=== PATIENT | female | born 1935 | race Caucasian/White ===

== ENCOUNTER 2023-12-20 12:10 | Inpatient (IN) | payer MEDICARE, BC, SELFPAY ==
[2023-12-18 16:13] VITALS: BP 124/88
--- NOTE | 2023-12-18 17:13 | ED.GENMED ---
History of Present Illness
General
Chief Complaint: Fall
Time Seen by Provider: 12/18/23 16:43
History of Present Illness
History of Present Illness:
Patient is a 88-year-old woman with history of prior stroke with no residual deficits, hypertension, hyperlipidemia presenting to the emergency department with recurrent falls. Patient states that she was diagnosed with an ear infection 4 days ago,
started on eardrops. She has not had a daily fall every single night for the past 3 days. Her daughter called primary care doctor who started her on azithromycin as the infection could be worsening. Patient's daughter brought her in here for the
falls and thinks that she needs to go to rehab secondary to all the falls. She does feel more weak which is why she is falling. She did hit her head. She did not lose consciousness. She is not on any blood thinners. No numbness tingling. No
weakness. She has been ambulating with a walker more recently. She does not feel as if her balance is acutely worse. This morning they did notice a rash to the left forehead.
Past History
Past History
ED Past Medical History: CVA, HTN, Hypercholesterolemia and Hypothyroidism
ED Past Surgical History: Other (History of having an angiogram)
Social History
Tobacco: Non-smoker
Personal:
Living: with family
Employment: Retired
Phy Exam
Physical Exam
Physical Exam:
GENERAL: in no acute distress
HEENT: normocephalic, extraocular movements intact, bilateral tympanic membranes normal, no vesicles in inner ear canal moist oral mucosa
NECK: normal inspection
RESPIRATORY: no respiratory distress, clear to auscultation bilaterally
CARDIOVASCULAR: regular rate and rhythm
ABDOMEN/: soft, non-distended, non-tender to palpation, no rebound or guarding
EXTREMITIES: non-tender, no edema/swelling
NEUROLOGIC: alert and oriented x 3, cranial nerves II-XII intact, right upper extremity strength 5/5, left upper extremity strength 5/5, right lower extremity strength 5/5, left lower extremity strength 5/5, normal sensation to light touch, normal
btowge-rj-wpzp and nxhi-de-zqpd, gait not tested formally
SKIN: warm, 1 cm circular erythematous macules to the left forehead and left side of nose, some scabbing, no vesicles, left eyelid with some erythema and crusting
Course
Orders/Labs/Results
Orders:
Orders
12/18/23 17:11
Case Management Consult ONCE
Case Management Consult: Discharge Planning
Physical Therapy Consult [Pt Eval And Treat] Urgent
Activity Level: Ambulate
12/18/23 17:33
CT Head W/wo Iv Contrast Urgent
Comment:
Reason For Exam: falls, rash, balance prob
12/18/23 17:40
Basic Metabolic Panel Urgent
Complete Blood Count/With Diff Urgent
12/18/23 18:48
Valacyclovir HCl [Valtrex] 1,000 mg PO ONCE ONE
12/18/23 19:31
Electrocardiogram (*1) Urgent
Reason for Study: Fatigue / Weakness
EKG- Treatment ONCE
Urinalysis Reflex To Culture Urgent
Date Specimen was Collected: 12/18/23
Time Specimen was Collected: 19:38
Abnormal Lab Results
12/18/23
17:40
RBC 3.32 L 10^6/uL
(4.20-5.40)
Hgb 10.3 L g/dL
(12.0-16.0)
Hct 30.1 L %
(37.0-47.0)
MPV 10.6 H fL
(7.4-10.4)
Immature Gran % 0.7 H %
(0-0.5)
Monocytes % 12.0 H %
(1.7-9.3)
BUN 18 H mg/dl
(7-17)
Creatinine 1.2 H mg/dL
(0.6-1.0)
Glucose 119 H mg/dl
(70-99)
12/18/23 17:40
12/18/23 17:40
Vital Signs
Initial and Last Documented VS:
Initial Vital Signs
Temp Pulse Resp BP Pulse Ox
97.7 F 89 17 124/88 98
12/18/23 16:13 12/18/23 16:13 12/18/23 16:13 12/18/23 16:13 12/18/23 16:13
Last Documented Vital Signs
Temp Pulse Resp BP Pulse Ox
97.7 F 89 17 147/74 95
12/18/23 16:13 12/18/23 16:13 12/18/23 16:13 12/18/23 20:05 12/18/23 20:05
MDM/Problems Addressed
Differential Diagnosis Includes:
Patient is a 88-year-old woman presenting to the emergency department with ear infection rash and recurrent falls. Vitals here are notable for being afebrile. Exam does show rash to the left forehead and the left side of the nose that is
consistent with shingles. There is no facial droop. Her neuroexam is reassuring. Given that she is having worsening fall since this ear infection and now with rash I am concerned about a deeper space infection such as an intracranial abscess
though patient is well-appearing. Will obtain basic blood work and CT scan of the head with contrast. Given the recurrent falls we will also check urine sample and EKG. we will discuss with physical therapy and case management for placement.
*Critical Care Note
Total Time (30-74mins, 75-104mins- exclusive of procedures): Not Applicable
Update Note
Update Note:
Discussed with case management and unfortunately patient will not be able to be placed at rehab today. Patient will need admission. We are pending CT scans at this time. Discussed with hospitalist who accepted pending CT scans.
ED Attending Note
-
Portions of this chart may have been created with voice recognition software.� Occasional wrong word or��sound alike� substitutions may have occurred due to the inherent limitations of voice recognition software.
Discharge Plan
Departure
Patient Disposition: Admit
Date of Disposition: 12/18/23
Time of Disposition: 20:08
Presentation/result/management discussed w/ accepting MD/DO: Hospitalist
Discharge Problem:
Shingles, Falls
Prescriptions:
No Action
aspirin 81 MG tablet,delayed release (DR/EC)
81 mg PO HS
pravastatin 40 MG tablet
40 mg PO HS
doxepin 10 MG capsule
10 mg PO HS
duloxetine 30 MG capsule,delayed release(DR/EC)
30 mg PO DAILY
Patient Comments:
01/25/2021: taken w/ 60mg = 90mg
duloxetine 60 MG capsule,delayed release(DR/EC)
60 mg PO DAILY
Patient Comments:
01/25/2021: taken w/ 30mg = 90mg
multivitamin with folic acid [Tab-A-Usha] 1 TABLET tablet
1 tab PO DAILY
midodrine 5 MG tablet
2.5 mg PO BID@0800,1300 0RF
levothyroxine 75 MCG tablet
75 mcg PO DAILY@0700 0RF
tramadol 50 MG tablet
50 mg PO Q6HPRN PRN (Reason: moderate to severe pain) Qty: 12 0RF
alprazolam 0.25 MG tablet
0.25 mg PO HSPRN PRN (Reason: insomnia) Qty: 3 0RF
cephalexin 500 mg capsule
1,000 mg PO BID Qty: 14 0RF
Referrals:
NONE,* [Active] -
Interventions
Interventions:
*Risk Screen - Suicide Last Done: 12/18/23 17:49
*General Assessment Last Done: 12/18/23 17:49
*Neglect/Abuse Screening Last Done: 12/18/23 17:49
*ED COVID-19 Vaccine History Last Done: 12/18/23 17:49
ED-Musculoskeletal Assessment Last Done: 12/18/23 17:49
ED- Neurological Assessment Last Done: 12/18/23 17:49
ED-Skin Assessment Last Done: 12/18/23 17:49
Discharge Date and Time
Print Language: SINGAPOREAN
--- NOTE | 2023-12-18 17:43 | CM ---
CM reviewed medical records. CM met with patient and daughter in room. Patient lives with daughter and has been having multiple falls. Daughter is agreeable to rehab. Patient stated that she would go 'if it helps me'. Cm encourage SNF
choices.Patient has been to [facility] and [facility]. Patient would be agreeable to return to [facility]. She would also be agreeable to [facility].
CM sent referrals to [facility] and [facility]. Pt evaluation is pending.
PLAN: SNF
[2023-12-18 17:48] LABS: % Basophils 0.2 % (0-2); % Eosinophils 1.5 % (0-6); % Immature Granulocytes 0.7 % (0-0.5); % Neutrophils 56.6 % (42.2-75.2); Absolute Eosinophils 0.1 10^3/uL (0-0.7); Absolute Lymphocytes 1.6 10^3/uL (1.2-3.4); Absolute Monocytes 0.6 10^3/uL (0.1-0.6); Hematocrit 30.1 % (37.0-47.0); Hemoglobin 10.3 g/dL (12.0-16.0); Mean Corp Hgb Conc. 34.2 g/dL (33.0-37.0); Mean Corpuscular Volume 90.7 fL (81.0-99.0); Mean Platelet Volume 10.6 fL (7.4-10.4); Nucleated Red Blood Cells % 0 %; Platelet Count 150 10^3/uL (130-400); Red Blood Cell Count 3.32 10^6/uL (4.20-5.40); Red Cell Dist. Width 12.5 % (11.5-14.5); White Blood Cell Count 5.4 10^3/uL (4.8-10.8)
[2023-12-18 18:11] LABS: Blood Urea Nitrogen 18 mg/dl (7-17); Calcium 9.3 mg/dl (8.4-10.2); Carbon Dioxide 26 mmol/L (22-30); Chloride 106 mmol/L (98-107); Glucose 119 mg/dl (70-99); Potassium 3.9 mmol/L (3.5-5.1); Sodium 140 mmol/L (135-145); eGFR 43.81
[2023-12-18] MEDS: VALTREX 1000 MG PO (19:32)
[2023-12-18 20:00] VITALS: BMI 27.9
[2023-12-18 20:05] VITALS: BP 147/74
[2023-12-18 20:08] VITALS: BP 147/74
[2023-12-18 21:00] VITALS: BP 135/75
[2023-12-18 22:00] VITALS: BP 111/62
[2023-12-18] MEDS: TYLENOL 650 MG PO (22:04)
[2023-12-18] MEDS: FLUSH (NSS) 1 FLUSH IV (22:05)
--- NOTE | 2023-12-18 22:39 | HPS.HSE ---
Family Physician
-
Family Physician: Mary Beth Ledbetter
Chief Complaint
-
Multiple Falls
History of Present Illness
Patient is an 88 y/o female past medial history of prior stroke, orthostatic hypotension, CKD and anxiety who presents with frequent falls. Patient reports chronic ambulatory dysfunction requiring a walker, but has noted increasing falls over the
past few days. Yesterday she developed left ear pain, but denies any tinnitus or vertigo. Her PCP started her on otic drops for an ear infection. Today patient developed a facial rash. She denies any prior history of shingles.
Medical History
Past Medical History
Past Medical History: Reports Other
Additional Past Medical History:
CVA
Chronic Right ICA Occlusion
Essential Hypertension
Orthostatic Hypotension
Hyperlipidemia
CKD Stage III
Hypothyroidism
Anxiety/Depression
Past Surgical History: Reports Other
Additional Past Surgical History:
Angiogram
Social History
Tobacco: Non-smoker
Family History
Family History: Not pertinent
Allergies / Home Medications
Allergies reflects when Allergies were last updated in [employer].
Home Medications with original date entered in [employer]
Allergy/Medication List:
Allergies
Allergy/AdvReac Type Severity Reaction Status Date / Time
latex Allergy Unknown Verified 12/18/23 16:14
Home Medications
aspirin 81 mg tablet,delayed release 81 mg PO DAILY Blood clot prevention/tx 07/27/15
doxepin 10 mg capsule 10 mg PO HS Sleep 01/25/21
duloxetine 60 mg capsule,delayed release 60 mg PO DAILY Depression 01/25/21
multivitamin with folic acid 400 mcg tablet (Tab-A-Usha) 1 tab PO DAILY Supplement 01/25/21
pravastatin 40 mg tablet 40 mg PO HS High cholesterol 01/25/21
Iron Extended Release 1 tab PO .2X WEEKLY 12/18/23
alprazolam 0.25 mg tablet 0.25 mg PO HS 12/18/23
azithromycin 250 mg tablet 250 mg PO PER PKG DIR 12/18/23
levothyroxine 50 mcg tablet 50 mcg PO DAILY 12/18/23
bupwhwva-wauwhpauu-fklgxpnjq 3.5 mg/mL-10,000 unit/mL-1 % ear solution 4 drp LEFT EAR TID 12/18/23
sennosides 8.6 mg tablet (senna) 8.6 mg PO DAILYPRN PRN constipation 12/18/23
Review of Systems
-
A 12 point ROS was completed and negative except as noted: Yes
Constitutional: Denies Fever or Chills
Respiratory: Denies Cough or Trouble Breathing
Cardiac: Denies Chest Pain or Palpitations
Physical Exam
Vital Signs
Vital Signs
Temp Pulse Resp BP Pulse Ox
97.7 F 90 17 111/62 92
12/18/23 16:13 12/18/23 22:03 12/18/23 16:13 12/18/23 22:00 12/18/23 22:00
Physical Exam
General: Comfortable and Conversant
HEENT: Anicteric, Moist mucous membranes and Other (Right Ear: Canal occluded with impacted cerumen; Left Ear: Auditory canal is clear without lesions or cerumen and pearly clear TM)
Respiratory: Clear and Non Labored Respirations
Cardiac: S1/S2 and Regular Rhythm
GI: Soft and Non Tender
Rectal: Deferred by Provider
Musculoskeletal: No Clubbing, No Cyanosis and No Edema
Skin: Warm, Dry and Rash (Macular rash with some vesicles across left forehead, upper eyelid and left nose sparing the tip)
Neuro: Awake, Alert, Oriented and Nonfocal/grossly intact
Psych: Calm
Laboratory Results
-
12/18/23 17:40
12/18/23 17:[address]:
No acute intracranial hemorrhage or extra axial collection. Old right frontal infarct. No mass effect. No abnormal enhancement. Mild chronic white matter ischemic change. Moderate atrophy.
Data Reviewed
-
Lab Data: Labs Reviewed by me
Impression/Plan
-
Shingles
-Continue valacyclovir
Ambulatory Dysfunction
-Consult PT/OT
-Check orthostatic VS given prior history of orthostatic hypotension
Prior CVA
-Continue aspirin
Hyperlipidemia
-Continue pravastatin
CKD Stage III
-Creatinine at baseline
Hypothyroidism
-Continue levothyroxine
Anxiety/Depression/Insomnia
-Continue Doxepin and Duloxetine
-Hold alprazolam due to frequent falls
DVT proph: SCDs
Code Status: Full Code
--- NOTE | 2023-12-18 23:37 | W.PN.UPDATE ---
Update Note
Progress Note Update
Attending addendum
patient seen and examined independently
88 y/o woman with a past medial history of
prior stroke,
orthostatic hypotension,
CKD
anxiety
frequent falls.
She reports chronic ambulatory dysfunction, requiring a walker, but has noted increasing falls over the past few days. Yesterday she developed left ear pain, and at that time denied any tinnitus or vertigo. Her PCP started her on otic drops for an
ear infection. Today she developed a facial rash. She denies any prior history of shingles.
Past Medical History
Past Medical History: Reports Other
Additional Past Medical History:
CVA
Chronic Right ICA Occlusion
Essential Hypertension
Orthostatic Hypotension
Hyperlipidemia
CKD Stage III
Hypothyroidism
Anxiety/Depression
alprazolam 0.25 mg tablet 0.25 mg PO HS 12/18/23
Physical Exam
General: Comfortable and Conversant
Respiratory: Clear and Non Labored Respirations
Cardiac: S1/S2 and Regular Rhythm
GI: Soft and Non Tender
Skin: Warm, Dry and Rash (Macular rash with some vesicles across left forehead, upper eyelid and left nose sparing the tip)
Psych: Calm
A/P: 88 woman with shingles on her face
1. Shingles-Continue valacyclovir
2. Ambulatory Dysfunction
Consult PT/OT
Check orthostatic VS
See PA note for full details on
Prior CVA
Hyperlipidemia
CKD Stage III
Hypothyroidism
Anxiety/Depression/Insomnia
[2023-12-19] VITALS (8 sets, daily range): BP systolic 114–154; BP diastolic 57–81; PULSE 78–121; BMI 26.8
[2023-12-19 01:16] LABS: Urine Albumin Trace (Neg - Trace); Urine Bilirubin Negative (Negative); Urine Character Clear (Clear); Urine Color Yellow; Urine Glucose Negative (Negative); Urine Ketone Negative (Negative); Urine Leukocyte Trace (Negative); Urine Nitrite Negative (Negative); Urine Occult Blood Negative (Negative); Urine Urobilinogen Negative (Neg - 1+)
[2023-12-19 01:28] LABS: Urine Bacteria Few (Negative); Urine Red Blood Cell 0-2 /HPF (0-2); Urine White Cell 0-2 /HPF (0-5)
[2023-12-19] MEDS: SYNTHROID 50 MCG PO (05:57)
--- NOTE | 2023-12-19 08:14 | W.PN.HOSP.TC ---
Today's Communication/Plan
-
ID and ophthalm consult
Valcyclovir (changed to TID)
Assessment / Plan
Assessment / Plan
88yo F with PMHx of hypothyroidism, anxiety, CVA, HLD, CKD stage 3a-b, frequent falls and chronic ambulatory disfunction was brought by family 2/2 worsening weakness and falls and new onset fascial rash, managed for herpes zoster
A/P:
#Herpes zoster
spreading V1 dermatome
Valcyclovir TID oral at this time, ID for need in IV Acyclovir, cautious to start with CKD at this time. Furthermore - no Hx of immunosupression or CA
No visual disturbances or pain, but L eye redness, concern for ophthalmicus
Ophthalmology consult
#Weakness, Hx of frequent falls
PT/OT
Head CT without acute findings
check cortisol AM
#Hypothyroidism
check TSH
cont Synthroid
#HLD
#CKD stage 3a-b
#Anxiety
#Hx of CVA
cont home meds
DVt ppx hep
full code
I have spent at least 58min reviewing chart, test results, communication with consultants and direct patient care
Anticipated Discharge: 24 - 48 hours
Subjective/Interval History
-
Date of Service: December 19, 2023
Objective Data
-
Vital Signs:
Vital Signs
Temp Pulse Resp BP Pulse Ox
98.2 F 90 17 111/62 96
12/19/23 00:12 12/18/23 22:03 12/18/23 16:13 12/18/23 22:00 12/19/23 00:12
I&O
12/18/23 12/19/23 12/20/23
06:59 06:59 06:59
Intake Total 480 / 480
Output Total 250 / 250
Balance 230 / 230
Review of Systems
-
History Source: Patient
All other systems: Reviewed and negative
Physical Exam
-
General: No Apparent Distress
HEENT: Other (vesicular rash in V1 distribution, L eye redness without visual changes or pain)
Respiratory: Clear to Auscultation
Cardiac: Regular Rhythm
GI: Soft, Nontender and Nondistended
Genito-urinary: No Costovertebral Tender
Musculoskeletal: No Clubbing, No Cyanosis and No Edema
Neuro: Awake, Alert, Oriented and AO x 3
Psych: Calm
[2023-12-19] MEDS: CYMBALTA DELAYED RELEASE 60 MG PO (08:16)
[2023-12-19] MEDS: ASPIR LOW (ENTERIC COATED) 81 MG PO (08:16)
[2023-12-19] MEDS: DEBROX EAR DROPS 1 DROP OTIC ×2 (08:16→21:32)
[2023-12-19] MEDS: VALTREX 1000 MG PO ×2 (08:40→15:29)
--- NOTE | 2023-12-19 09:00 | PTCARENOTE ---
Patient admitted with crusted over shingles lesions on L side of face. This RN received patient on contact precautions. Infection prevention contacted this AM to clarify isolation precautions for patient. Per infection prevention, patient okay for
standard precautions.
[2023-12-19 11:27] LABS: TSH Reflex To Free T4 3.65 uIU/ml (0.47-4.68)
--- NOTE | 2023-12-19 12:44 | CM ---
Reviewed the chart notes and spoke with the patient and her granddaughter at the bedside. The patient is being admitted under observational status. The [facility] letter was provided and explained. The patient had no questions with regards to the
letter. The patient had [employer] and Medicare.
--- NOTE | 2023-12-19 15:04 | CON.ID ---
Addendum entered and electronically signed by Carlie Santiago MD 12/19/23 17:22:
I personally performed a history and physical exam of the patient and discussed management with the resident. I reviewed the resident's note and agree with the documented findings and plan of care HPI/CC.
Exam: vesicular lesions left forehead, around eye including lower eyelid, left cheek, down side of nose, possible lesion on tip of nose.
left conjunctiva mild erythema.
no lesions left ear
# Left V1 herpes zoster with suspected orbital involvement
-Unvaccinated against zoster.
- Await optho eval.
- Replace valacyclovir with IV acyclovir 10mg/kg q12 (renally adjusted) for now.
- Follow renal function closely.
- Continue isolation until all lesions crusted.
Original Note:
Consultation
-
Date/Time Consultation Requested: 12-19-23
Date/Time Consultation Performed: 12-19-23
Requesting Provider: Dr. Man
Performing Provider: Dr. Santiago
Reason for Consultation: Herpes zoster
Chief Complaint / Past History
Chief Complaint
LEFT facial rash
History of Present Illness
Giulia Gibson, age 88, came to the emergency on 12-18-03 after a fall and a new-onset rash. She did hit her head but did not lose consciousness. She has noted increasing number of falls in the past year, and has been using her walker more often. She
was started on azithromycin and ear drops for ear pain and suspected infection on 12-17-23. The pain is now more focused on the affected area of the rash; the pain is intermittent and stabbing in nature. She does have a history of chicken pox when
she was 8. Did not receive the Shingles vaccine.
Past History
Past Medical History: Other (chicken pox, CVA, HTN, HLD, CKD IIIa, hypothyroidism, anxiety, insomnia)
Past Surgical History: None
Allergy History:
latex Allergy (Verified 12/18/23 16:14)
Unknown
Social History
Tobacco: Non-Smoker
Alcohol: None
Drug: None
Family History
Family History: Not Pertinent
Review of Systems
Review of Systems
General: Negative Fever or Chills
Cardiovascular: Negative Chest Pain or Palpitations
Respiratory: Negative Dyspnea or Cough
Gasteroenterology: Negative Weight Loss
Genital / Urological: Negative Dysuria
Endocrine: Negative Weight Change, Weakness or Fatigue
Musculoskeletal: Negative Joint Pain or Joint Swelling
Skin / Hair / Nails: Rash (LEFT forehead and ocular rash) and Other (intermittent sharp stabbing pain over the affected region)
Neurological: Negative Headache
Psychological: Negative Sleep Changes
Vital Signs
Temp Pulse Resp BP Pulse Ox
98.2 F 74 16 140/70 98
12/19/23 08:00 12/19/23 08:00 12/19/23 08:00 12/19/23 08:00 12/19/23 11:10
Physical Exam
Physical Exam
Constitutional: No Acute Distress and Comfortable
Head: Normocephalic
Eyes: Erythema (LEFT eyelid mild with some swelling) and Other (rash, as noted below)
Pharynx: Negative Erythema
Cardiovascular: Regular Rate and S1/S2
Pulmonary: Clear and Non Labored
Gastrointestinal: Soft, Non Tender and Non Distended
Extremities: Negative Edema, Clubbing or Cyanosis
Skin: Rash (patchy, vesicular and erythematous rash limited to the LEFT forehead and ocular area - V1 dermatome)
Neurological: Awake, Alert, Oriented and No Motor Deficits
Psychological: Calm
Lab / Diagnostic Study Results
12/18/23 17:40
12/18/23 17:40
Abs Immat Gran (auto) 0.0 10^3/uL (0-0.05) 12/18/23 17:40
Absolute Neuts (auto) 3.0 10^3/uL (1.4-6.5) 12/18/23 17:40
Absolute Lymphs (auto) 1.6 10^3/uL (1.2-3.4) 12/18/23 17:40
Absolute Monos (auto) 0.6 10^3/uL (0.1-0.6) 12/18/23 17:40
Absolute Basos (auto) 0.0 10^3/uL (0-0.2) 12/18/23 17:40
Immature Gran % 0.7 % (0-0.5) H 12/18/23 17:40
Neutrophils % 56.6 % (42.2-75.2) 12/18/23 17:40
Lymphocytes % 29.0 % (20.5-51.1) 12/18/23 17:40
Monocytes % 12.0 % (1.7-9.3) H 12/18/23 17:40
Eosinophils % 1.5 % (0-6) 12/18/23 17:40
Basophils % 0.2 % (0-2) 12/18/23 17:40
Ur Squamous Epith Cells 6-10 /LPF (Few) 12/19/23 01:10
Assessment / Plan
Herpes zoster ophthalmicus
History of chicken pox, age 8
- Did not receive the Shingles vaccine.
- Does have mild eyelid swelling and very mild erythema.
- No visual disturbances or other ocular symptoms.
- Does have intermittent sharp and shooting pain over the region and ear (which might be referred).
- Switch oral valacyclovir to IV acyclovir.
- Ophthalmology input appreciated.
Conditions known prior to admission:
Ambulatory dysfunction
Recurrent falls
Hyperlipidemia
Hypothyroidism
Essential hypertension
Insomnia
Depression
Chronic kidney disease, stage IIIa
History of CVA
[2023-12-19] MEDS: TYLENOL 650 MG PO (17:04)
[2023-12-19] MEDS: ZOVIRAX INJECTION 113 MG IV (18:05)
[2023-12-19] MEDS: NSS 1000 IV (18:40)
--- NOTE | 2023-12-19 19:25 | PTCARENOTE ---
Patient transferred to room 2130 for negative pressure room per infection prevention. Patient on airborne isolation.
[2023-12-19] MEDS: PRAVACHOL 40 MG PO (21:32)
[2023-12-19] MEDS: SINEQUAN 10 MG PO (21:32)
[2023-12-20] MEDS: SYNTHROID 50 MCG PO (05:54)
[2023-12-20] MEDS: ZOVIRAX INJECTION 113 MG IV ×2 (05:54→18:05)
[2023-12-20 05:55] VITALS: BMI 26.6
[2023-12-20] MEDS: ASPIR LOW (ENTERIC COATED) 81 MG PO (08:02)
[2023-12-20] MEDS: CYMBALTA DELAYED RELEASE 60 MG PO (08:02)
[2023-12-20] MEDS: DEBROX EAR DROPS 1 DROP OTIC ×2 (08:02→21:30)
[2023-12-20 08:12] VITALS: BP 147/62
--- NOTE | 2023-12-20 08:59 | W.PN.ID1 ---
Addendum entered and electronically signed by Carlie Santiago MD 12/20/23 14:40:
I saw and evaluated the patient. I reviewed the resident�s note and agree with findings and plan as documented in the resident�s note.
Exam: Left upper face + vesicular lesions, some are crusting
mild erythema left conjunctiva
# Herpes ophthalmicus
- Continue IV acyclovir (d2)
- at time of discharge, transition to 1000 mg po q12 to complete 14d through 01/01/24.
Original Note:
Date of Service
Date of Service: December 20, 2023
Today's Communication
- Continue IV acyclovir.
- Follow renal function.
- Ophthalmology evaluation appreciated.
Assessment / Plan
Herpes zoster ophthalmicus
History of chicken pox, age 8
- Did not receive the Shingles vaccine.
- Suspected orbital involvement; ophthalmology consultation.
- No visual disturbances or other ocular symptoms.
- Does have intermittent sharp and shooting pain over the region and ear (which might be referred).
- Continue IV acyclovir, renally dosed; follow renal function.
- Isolation until lesions crust over.
Conditions known prior to admission:
Ambulatory dysfunction
Recurrent falls
Hyperlipidemia
Hypothyroidism
Essential hypertension
Insomnia
Depression
Chronic kidney disease, stage IIIa
History of CVA
Chief Complaint
-: Other (rash)
Subjective / Review of Systems
Review of Systems: No Fever, No Chills, No Headache, No Stiff Neck, No Chest Pain, No Palpitations, No Abdominal Pain, No Nausea, No Diarrhea, No Joint Pain and Skin Rash (LEFT forehead and ocular region)
Vital Signs / Physical Exam
Vital Signs
Vital Signs
Temp Pulse Resp BP Pulse Ox
98.0 F 76 16 147/62 96
12/20/23 08:12 12/20/23 08:12 12/20/23 08:12 12/20/23 08:12 12/20/23 08:12
Physical Exam
Constitutional: No Acute Distress and Comfortable
Head: Normocephalic
Eyes: Erythema (LEFT eyelid mild erythema with some swelling)
Oropharyngeal: Benign
Cardiovascular: Regular Rate and S1/S2
Pulmonary: Clear and Non Labored
Gastrointestinal: Soft, Non Tender and Non Distended
Extremities: Negative Edema, Clubbing or Cyanosis
Skin: Rash (patchy, vesicular and erythematous rash limited to the LEFT forehead and ocular area - V1 dermatome)
Neurological: Awake, Alert, Oriented and No Motor Deficits
Psychological: Calm
Objective Data
Lab Data
Most recent labs reviewed.
[2023-12-20 09:02] LABS: % Basophils 0.4 % (0-2); % Eosinophils 1.3 % (0-6); % Immature Granulocytes 0.7 % (0-0.5); % Monocytes 17.2 % (1.7-9.3); % Neutrophils 43.4 % (42.2-75.2); Absolute Eosinophils 0.1 10^3/uL (0-0.7); Absolute Lymphocytes 1.7 10^3/uL (1.2-3.4); Absolute Monocytes 0.8 10^3/uL (0.1-0.6); Hematocrit 31.8 % (37.0-47.0); Hemoglobin 11.1 g/dL (12.0-16.0); Mean Corp Hgb Conc. 34.9 g/dL (33.0-37.0); Mean Corpuscular Hgb 31.7 pg (27.0-31.0); Mean Corpuscular Volume 90.9 fL (81.0-99.0); Mean Platelet Volume 10.8 fL (7.4-10.4); Nucleated Red Blood Cells % 0 %; Platelet Count 146 10^3/uL (130-400); Red Cell Dist. Width 12.6 % (11.5-14.5); White Blood Cell Count 4.6 10^3/uL (4.8-10.8)
[2023-12-20 09:52] LABS: ALT (SGPT) 15 U/L (0-35); AST (SGOT) 26 U/L (14-36); Albumin 4.2 g/dl (3.5-5.0); Alkaline Phosphatase 67 U/L (38-126); Blood Urea Nitrogen 14 mg/dl (7-17); Calcium 9.3 mg/dl (8.4-10.2); Carbon Dioxide 20 mmol/L (22-30); Chloride 108 mmol/L (98-107); Estimated Creatinine Clearance 32 ml/min; Glucose 94 mg/dl (70-99); Sodium 143 mmol/L (135-145); Total Bilirubin 0.6 mg/dl (0.2-1.3); Total Protein 6.6 g/dl (6.3-8.2); eGFR 48.63
--- NOTE | 2023-12-20 10:57 | W.PN.HOSP.TC ---
Today's Communication/Plan
-
COnt Acyclovir pending ID to switch to oral
Remains without ocular symptoms - as per ophthalmology - will need outpatient follow up
reached VM only on all phone numbers
Assessment / Plan
Assessment / Plan
88yo F with PMHx of hypothyroidism, anxiety, CVA, HLD, CKD stage 3a-b, frequent falls and chronic ambulatory disfunction was brought by family 2/2 worsening weakness and falls and new onset fascial rash, managed for herpes zoster
A/P:
#Herpes zoster
spreading V1 dermatome
ID started IV Acyclovir, follow Cr. no Hx of immunosuppression or CA, however as per hospital policy - airborne precautions
No visual disturbances or pain, but L eye redness, concern for ophthalmicus
Ophthalmology: outpatient follow up with absent vision disturbances or ocular pain
#Weakness, Hx of frequent falls
PT/OT: home PT vs rehabb depending on family ability to provide standby assistance
Head CT without acute findings
cortisol AM pending
#Hypothyroidism
TSH WNL
cont Synthroid
#HLD
#CKD stage 3a-b
#Anxiety
#Hx of CVA
cont home meds
DVt ppx hep
full code
I have spent at least 38min reviewing chart, test results, communication with consultants and direct patient care
Anticipated Discharge: > 48 hours
Subjective/Interval History
-
Date of Service: December 20, 2023
Objective Data
-
Labs:
Laboratory Results
12/20/23
08:13
WBC 4.6 L
Hgb 11.1 L
Hct 31.8 L
Plt Count 146
Sodium 143
Potassium 4.0
Chloride 108 H
Carbon Dioxide 20 L
BUN 14
Creatinine 1.1 H
Glucose 94
Calcium 9.3
Total Bilirubin 0.6
AST 26
ALT 15
Alkaline Phosphatase 67
Vital Signs:
Vital Signs
Temp Pulse Resp BP Pulse Ox
98.0 F 76 16 147/62 96
12/20/23 08:12 12/20/23 08:12 12/20/23 08:12 12/20/23 08:12 12/20/23 08:15
I&O
12/19/23 12/20/23 12/21/23
06:59 06:59 06:59
Intake Total 480 / 480 960 / 960
Output Total 250 / 250 1350 / 1350
Balance 230 / 230 -390 / -390
Review of Systems
-
History Source: Patient
All other systems: Reviewed and negative
Physical Exam
-
General: No Apparent Distress
HEENT: PERRLA and Other (vesicular rash in L V1 distribution)
Respiratory: Clear to Auscultation
Cardiac: Regular Rhythm
GI: Soft, Nontender and Nondistended
Musculoskeletal: No Clubbing, No Cyanosis and No Edema
Skin: Warm
Neuro: Awake, Alert, Oriented and AO x 3
Psych: Calm
--- NOTE | 2023-12-20 11:11 | CM ---
Addendum entered by Karla Manley 12/20/23 15:24:
Notified that the patient is now inpatient.
IMM explained & signed. Placed in chart.
Discussed plan of care with daughter Gemma & the patient.
Original Note:
Patient seen at bedside.
Dx: shingles, amb dysfunction
Patient under observation status. Spoke with Waleska in admissions who ran her insurance again & they stated Medicare was primary. They will adjust in EMR.
PT eval patient and recommended SNF vs. home
Spoke with the patient & daughter Katy & she would like SNF.
Patient is under observation status. CM reached out to [employer] liaison to check if she qualifies for [employer] waiver.
PLAN: SNF, since patient is observation status & medicare primary, CM to check on [employer] waiver program.
[2023-12-20 12:19] LABS: Cortisol, Random 11.3 ug/dl
[2023-12-20 15:00] VITALS: BP 132/84
[2023-12-20] MEDS: NSS IV (15:42)
[2023-12-20] MEDS: TYLENOL 650 MG PO (15:46)
[2023-12-20 19:50] VITALS: BP 131/90; BP 141/77; BP 150/83; PULSE 100; PULSE 108; PULSE 93
[2023-12-20] MEDS: PRAVACHOL 40 MG PO (21:30)
[2023-12-20] MEDS: SINEQUAN 10 MG PO (21:30)
[2023-12-20 23:33] VITALS: BP 136/79
[2023-12-21 05:33] VITALS: BMI 26.5
[2023-12-21] MEDS: ZOVIRAX INJECTION 113 MG IV ×2 (05:55→17:28)
[2023-12-21] MEDS: SYNTHROID 50 MCG PO (05:55)
[2023-12-21 07:03] LABS: Blood Urea Nitrogen 15 mg/dl (7-17); Calcium 9.1 mg/dl (8.4-10.2); Carbon Dioxide 25 mmol/L (22-30); Chloride 105 mmol/L (98-107); Estimated Creatinine Clearance 29 ml/min; Glucose 115 mg/dl (70-99); Potassium 3.6 mmol/L (3.5-5.1); Sodium 144 mmol/L (135-145); eGFR 43.81
[2023-12-21 07:25] VITALS: BP 151/81
[2023-12-21] MEDS: CYMBALTA DELAYED RELEASE 60 MG PO (08:31)
[2023-12-21] MEDS: ASPIR LOW (ENTERIC COATED) 81 MG PO (08:31)
[2023-12-21] MEDS: DEBROX EAR DROPS 1 DROP OTIC ×2 (08:31→20:08)
--- NOTE | 2023-12-21 08:45 | W.PN.HOSP.TC ---
Today's Communication/Plan
-
improving, but still some of the leasions not crusted
cont Acyclovir and hydration
Left VM for daughter for need in outpatient ophthalmology follow up - referral to be provided upon d/c
Assessment / Plan
Assessment / Plan
88yo F with PMHx of hypothyroidism, anxiety, CVA, HLD, CKD stage 3a-b, frequent falls and chronic ambulatory disfunction was brought by family 2/2 worsening weakness and falls and new onset fascial rash, managed for herpes zoster
A/P:
#Herpes zoster
spreading V1 dermatome
ID started IV Acyclovir, follow Cr. no Hx of immunosuppression or CA, however as per hospital policy - airborne precautions. COnt IVF while on IV acyclovir
No visual disturbances or pain, but L eye redness, concern for ophthalmicus
Ophthalmology: outpatient follow up with absent vision disturbances or ocular pain
#Weakness, Hx of frequent falls
PT/OT: home PT vs rehabb depending on family ability to provide standby assistance
Head CT without acute findings
cortisol AM pending
#Hypothyroidism
TSH WNL
cont Synthroid
#HLD
#CKD stage 3a-b
#Anxiety
#Hx of CVA
cont home meds
DVt ppx hep
full code
I have spent at least 38min reviewing chart, test results, communication with consultants and direct patient care
Anticipated Discharge: 24 - 48 hours
Subjective/Interval History
-
Date of Service: December 21, 2023
Objective Data
-
Labs:
Laboratory Results
12/21/23
05:22
Sodium 144
Potassium 3.6
Chloride 105
Carbon Dioxide 25
BUN 15
Creatinine 1.2 H
Glucose 115 H
Calcium 9.1
Vital Signs:
Vital Signs
Temp Pulse Resp BP Pulse Ox
98.3 F 91 16 136/79 95
12/20/23 23:33 12/20/23 23:33 12/20/23 23:33 12/20/23 23:33 12/20/23 23:33
I&O
12/20/23 12/21/23 12/22/23
06:59 06:59 06:59
Intake Total 960 / 960 1992
Output Total 1350 / 1350 1350 / 1350
Balance -390 / -390 643 / 643
Review of Systems
-
Unable to obtain full review of systems at this time due to: Dementia
History Source: Patient
All other systems: Reviewed and negative
Physical Exam
-
General: No Apparent Distress
HEENT: Other (crusting rash over the forehead)
Musculoskeletal: No Clubbing, No Cyanosis and No Edema
Skin: Warm
Neuro: Awake, Alert, Oriented and AO x 3
Psych: Apparent Dementia
[2023-12-21] MEDS: NSS 1000 IV (10:00)
--- NOTE | 2023-12-21 10:23 | PTCARENOTE ---
pt restarted on IVF @60ml/hr through the L forearm. pt is aaox3, shingles on face is improving and looks like it is starting to crust over. pt verbalizes no discomfort at this time. when doing medication administration, pt states ear pain is on L
side. MAR order for drops is ordered for R. per patient chart and note, initial pain started in left. error with order. drops given in L ear by this nurse.
[2023-12-21 10:31] LABS: Hematocrit 30.8 % (37.0-47.0); Hemoglobin 10.7 g/dL (12.0-16.0); Mean Corp Hgb Conc. 34.7 g/dL (33.0-37.0); Mean Corpuscular Hgb 31.8 pg (27.0-31.0); Mean Corpuscular Volume 91.7 fL (81.0-99.0); Mean Platelet Volume 10.9 fL (7.4-10.4); Platelet Count 148 10^3/uL (130-400); Red Blood Cell Count 3.36 10^6/uL (4.20-5.40); Red Cell Dist. Width 12.8 % (11.5-14.5); White Blood Cell Count 4.5 10^3/uL (4.8-10.8)
--- NOTE | 2023-12-21 11:08 | CM ---
Patient cont with Aciclovir/IV.
Call to Rosemarie at [facility] & left message regarding availability of bed.
Family would like [facility] as 1st choice.
Referrals also entered for [facility].
PT note 12/19 recommend Home vs. SNF - discussed previously with daughter & would like SNF.
PLAN: Discharge when medically stable to SNF
[2023-12-21 11:42] VITALS: BP 140/87; BP 151/84; PULSE 87; PULSE 92
--- NOTE | 2023-12-21 12:37 | W.PN.ID1 ---
Addendum entered and electronically signed by Carlie Santiago MD 12/21/23 14:55:
I saw and evaluated the patient. I reviewed the resident�s note and agree with findings and plan as documented in the resident�s note.
Exam: vesicular lesions left forehead, around eye including lower eyelid, left cheek, down side of nose, tip of nose: 75% crusting
left conjunctiva mild erythema improving.
# Left V1 herpes zoster with suspected orbital involvement
-Unvaccinated against zoster.
- Outpt optho evaluation, per ophtho.
- IV acyclovir 10mg/kg q12 (renally adjusted) (day 3).
- Planning on 7days of IV acyclovir. If SNF bed available, can transition to valacyclovir (renally adjusted dose) till 12/27.
- Follow renal function closely.
- Eventual outpatient Shingrix vaccination x 2 doses.
- Continue isolation until all lesions crusted.
Original Note:
Date of Service
Date of Service: December 21, 2023
Today's Communication
- Continue IV acyclovir.
- Follow renal function.
Assessment / Plan
Herpes zoster ophthalmicus
History of chicken pox, age 8
- Did not receive the Shingles vaccine.
- Suspected orbital involvement; ophthalmology consultation.
- No visual disturbances or other ocular symptoms.
- Does have intermittent sharp and shooting pain over the region and ear (which might be referred).
- Continue IV acyclovir (day 3), renally dosed; follow renal function.
- Isolation until lesions crust over.
Conditions known prior to admission:
Ambulatory dysfunction
Recurrent falls
Hyperlipidemia
Hypothyroidism
Essential hypertension
Insomnia
Depression
Chronic kidney disease, stage IIIa
History of CVA
Chief Complaint
-: Other (rash)
Subjective / Review of Systems
Review of Systems: No Fever, No Chills, No Headache, No Stiff Neck, No Chest Pain, No Palpitations, No Abdominal Pain, No Nausea, No Diarrhea, No Joint Pain and Skin Rash (LEFT forehead and ocular region)
Vital Signs / Physical Exam
Vital Signs
Vital Signs
Temp Pulse Resp BP Pulse Ox
97.2 F 107 20 151/81 96
12/21/23 07:25 12/21/23 07:25 12/21/23 07:25 12/21/23 07:25 12/21/23 08:20
Physical Exam
Constitutional: No Acute Distress and Comfortable
Head: Normocephalic
Eyes: Erythema (LEFT eyelid mild erythema with some swelling)
Oropharyngeal: Benign
Cardiovascular: Regular Rate and S1/S2
Pulmonary: Clear and Non Labored
Gastrointestinal: Soft, Non Tender and Non Distended
Extremities: Negative Edema, Clubbing or Cyanosis
Skin: Rash (patchy, vesicular and erythematous rash limited to the LEFT forehead and ocular area - V1 dermatome)
Neurological: Awake, Alert, Oriented and No Motor Deficits
Psychological: Calm
Objective Data
Lab Data
Lab Results
12/21/23 10:01
12/21/23 05:22
Estimated Creat Clear 29 ml/min 12/21/23 05:22
Total Bilirubin 0.6 mg/dl (0.2-1.3) 12/20/23 08:13
AST 26 U/L (14-36) 12/20/23 08:13
ALT 15 U/L (0-35) 12/20/23 08:13
Alkaline Phosphatase 67 U/L (38-126) 12/20/23 08:13
Most recent labs reviewed.
[2023-12-21 15:45] VITALS: BP 166/82
[2023-12-21] MEDS: PRAVACHOL 40 MG PO (21:10)
[2023-12-21] MEDS: MELATONIN 3 MG PO (21:10)
[2023-12-21] MEDS: SINEQUAN 10 MG PO (21:10)
[2023-12-21 23:16] VITALS: BP 151/87
[2023-12-21] MEDS: TYLENOL 650 MG PO (23:39)
[2023-12-22] MEDS: NSS 1000 IV ×2 (01:04→17:25)
[2023-12-22] MEDS: SYNTHROID 50 MCG PO (06:00)
[2023-12-22] MEDS: ZOVIRAX INJECTION 113 MG IV ×2 (06:00→17:24)
[2023-12-22 06:14] VITALS: BMI 27.2
[2023-12-22 07:15] VITALS: BP 148/69
[2023-12-22 07:51] LABS: Blood Urea Nitrogen 14 mg/dl (7-17); Calcium 8.8 mg/dl (8.4-10.2); Carbon Dioxide 25 mmol/L (22-30); Chloride 108 mmol/L (98-107); Estimated Creatinine Clearance 30 ml/min; Glucose 95 mg/dl (70-99); Potassium 3.6 mmol/L (3.5-5.1); Sodium 144 mmol/L (135-145); eGFR 43.81
[2023-12-22] MEDS: TYLENOL 650 MG PO ×2 (07:51→17:39)
[2023-12-22] MEDS: ASPIR LOW (ENTERIC COATED) 81 MG PO (07:51)
[2023-12-22] MEDS: CYMBALTA DELAYED RELEASE 60 MG PO (07:52)
--- NOTE | 2023-12-22 08:06 | PTCARENOTE ---
Addendum entered by Leann Baird RN 12/22/23 08:11:
left side rash continues
Original Note:
patient aox2, forgetful to time . c/o lefteye/facial pain, see mar. oob to chair eating breakfast, call gupta in reach, chair alarm in place
--- NOTE | 2023-12-22 10:35 | W.PN.HOSP.TC ---
Today's Communication/Plan
-
COnt Acyclovir IV and IVF
Still no visual disturbances seen. L eye without redness or pain
Assessment / Plan
Assessment / Plan
88yo F with PMHx of hypothyroidism, anxiety, CVA, HLD, CKD stage 3a-b, frequent falls and chronic ambulatory disfunction was brought by family 2/2 worsening weakness and falls and new onset fascial rash, managed for herpes zoster
A/P:
#Herpes zoster
spreading V1 dermatome
ID started IV Acyclovir, follow Cr. no Hx of immunosuppression or CA, however as per hospital policy - airborne precautions. COnt IVF while on IV acyclovir
No visual disturbances or pain, but L eye redness, concern for ophthalmicus
Ophthalmology: outpatient follow up with absent vision disturbances or ocular pain
#Weakness, Hx of frequent falls
PT/OT: home PT vs rehabb depending on family ability to provide standby assistance
Head CT without acute findings
cortisol AM pending
#Hypothyroidism
TSH WNL
cont Synthroid
#HLD
#CKD stage 3a-b
#Anxiety
#Hx of CVA
cont home meds
#Mild anemia
outpatient follow up with PCP
#Mild leukopenia
most liekly 2/2 acute disease
follow CBC
DVt ppx hep
full code
I have spent at least 38min reviewing chart, test results, communication with consultants and direct patient care
Anticipated Discharge: > 48 hours
Subjective/Interval History
-
Date of Service: December 22, 2023
Objective Data
-
Labs:
Laboratory Results
12/22/23
06:25
Sodium 144
Potassium 3.6
Chloride 108 H
Carbon Dioxide 25
BUN 14
Creatinine 1.2 H
Glucose 95
Calcium 8.8
Vital Signs:
Vital Signs
Temp Pulse Resp BP Pulse Ox
98.0 F 80 16 148/69 98
12/22/23 07:15 12/22/23 07:15 12/22/23 07:15 12/22/23 07:15 12/22/23 07:15
I&O
12/21/23 12/22/23 12/23/23
06:59 06:59 06:59
Intake Total 1992 / 1992 2573 / 2573
Output Total 1350 / 1350 400 / 400
Balance 643 / 643 2173 / 2173
Review of Systems
-
History Source: Patient
All other systems: Reviewed and negative
Physical Exam
-
General: No Apparent Distress
HEENT: Other (crusted rash over L forehead)
Respiratory: Clear to Auscultation
Cardiac: Regular Rhythm
GI: Soft, Nontender and Nondistended
--- NOTE | 2023-12-22 11:04 | W.PN.ID1 ---
Date of Service
Date of Service: December 22, 2023
Today's Communication
Continue acyclovir.
Assessment / Plan
Herpes zoster ophthalmicus (V1)
History of chicken pox, age 8
- Did not receive the Shingles vaccine.
- Suspected orbital involvement; ophthalmology consultation.
- No visual disturbances or other ocular symptoms.
- Does have intermittent sharp and shooting pain over the region and ear (which might be referred).
- Continue IV acyclovir (day#4), renally dosed; follow renal function.
- Isolation until lesions crust over.
Conditions known prior to admission:
Ambulatory dysfunction
Recurrent falls
Hyperlipidemia
Hypothyroidism
Essential hypertension
Insomnia
Depression
Chronic kidney disease, stage IIIa
History of CVA
Chief Complaint
-: Other (rash)
Subjective / Review of Systems
Review of Systems: No Fever and No Chills
Vital Signs / Physical Exam
Vital Signs
Vital Signs
Temp Pulse Resp BP Pulse Ox
98.0 F 80 16 148/69 98
12/22/23 07:15 12/22/23 07:15 12/22/23 07:15 12/22/23 07:15 12/22/23 07:15
Physical Exam
Constitutional: No Acute Distress and Comfortable
Head: Normocephalic
Eyes: Erythema (LEFT eyelid mild erythema with some swelling)
Oropharyngeal: Benign
Cardiovascular: Regular Rate and S1/S2
Pulmonary: Clear and Non Labored
Gastrointestinal: Soft, Non Tender and Non Distended
Extremities: Negative Edema, Clubbing or Cyanosis
Skin: Rash (patchy, vesicular and erythematous rash limited to the LEFT forehead and ocular area - V1 dermatome. Vesicles now appear crusted.)
Neurological: Awake, Alert, Oriented and No Motor Deficits
Psychological: Calm
Objective Data
Lab Data
Lab Results
12/21/23 10:01
12/22/23 06:25
Estimated Creat Clear 30 ml/min 12/22/23 06:25
Total Bilirubin 0.6 mg/dl (0.2-1.3) 12/20/23 08:13
AST 26 U/L (14-36) 12/20/23 08:13
ALT 15 U/L (0-35) 12/20/23 08:13
Alkaline Phosphatase 67 U/L (38-126) 12/20/23 08:13
Most recent labs reviewed.
[2023-12-22 15:05] VITALS: BP 179/91
[2023-12-22 17:12] VITALS: BP 150/70; PULSE 80; O2SAT 96
[2023-12-22 17:32] VITALS: BP 172/91
[2023-12-22] MEDS: PROCARDIA XL (EXTENDED RELEASE) 30 MG PO (17:59)
--- NOTE | 2023-12-22 19:15 | PTCARENOTE ---
aprox 1750 Dr Man notified of patients high BP this afternoon of 172/92 and 179/91. Order placed for daily procardia to be started today. Med given.
[2023-12-22] MEDS: SINEQUAN 10 MG PO (21:10)
[2023-12-22] MEDS: PRAVACHOL 40 MG PO (21:10)
[2023-12-22] MEDS: MELATONIN 3 MG PO (21:10)
[2023-12-22 23:12] VITALS: BP 118/55
[2023-12-23] MEDS: ZOVIRAX INJECTION 113 MG IV ×2 (05:19→17:56)
[2023-12-23] MEDS: SYNTHROID 50 MCG PO (05:20)
[2023-12-23 05:26] VITALS: BMI 26.9
[2023-12-23 07:00] LABS: Hematocrit 30.1 % (37.0-47.0); Hemoglobin 10.2 g/dL (12.0-16.0); Mean Corp Hgb Conc. 33.9 g/dL (33.0-37.0); Mean Corpuscular Hgb 30.4 pg (27.0-31.0); Mean Corpuscular Volume 89.6 fL (81.0-99.0); Mean Platelet Volume 10.4 fL (7.4-10.4); Platelet Count 166 10^3/uL (130-400); Red Blood Cell Count 3.36 10^6/uL (4.20-5.40); Red Cell Dist. Width 12.9 % (11.5-14.5); White Blood Cell Count 5.6 10^3/uL (4.8-10.8)
[2023-12-23 07:10] VITALS: BP 167/92
[2023-12-23 07:22] LABS: Blood Urea Nitrogen 11 mg/dl (7-17); Calcium 9.1 mg/dl (8.4-10.2); Carbon Dioxide 22 mmol/L (22-30); Chloride 108 mmol/L (98-107); Estimated Creatinine Clearance 36 ml/min; Glucose 103 mg/dl (70-99); Potassium 3.6 mmol/L (3.5-5.1); Sodium 146 mmol/L (135-145); eGFR 54.53
--- NOTE | 2023-12-23 08:24 | W.PN.HOSP.TC ---
Today's Communication/Plan
-
lesions crusted, medically stable for d/c, CM for rehab
Assessment / Plan
Assessment / Plan
88yo F with PMHx of hypothyroidism, anxiety, CVA, HLD, CKD stage 3a-b, frequent falls and chronic ambulatory disfunction was brought by family 2/2 worsening weakness and falls and new onset fascial rash, managed for herpes zoster. Lesions close to
eye, however with no ocular symptoms - as per conversation to ophthalmology, can follow up as outpatient. [facility]ile[facility] also informed on that. Needs rehab and upon d/c can be switched to oral valaciclovir until 12/28/23
A/P:
#Herpes zoster
spreading V1 dermatome
ID started IV Acyclovir, follow Cr. no Hx of immunosuppression or CA, however as per hospital policy - airborne precautions. COnt IVF while on IV acyclovir
No visual disturbances or pain, but L eye redness, concern for ophthalmicus
Ophthalmology: outpatient follow up with absent vision disturbances or ocular pain
#Weakness, Hx of frequent falls
PT/OT: home PT vs rehabb depending on family ability to provide standby assistance
Head CT without acute findings
cortisol AM pending
#Hypothyroidism
TSH WNL
cont Synthroid
#Essential HTN
started nifedipine
#HLD
#CKD stage 3a-b
#Anxiety
#Hx of CVA
cont home meds
#Mild anemia
outpatient follow up with PCP
#Mild leukopenia
most liekly 2/2 acute disease
follow CBC
DVt ppx hep
full code
I have spent at least 38min reviewing chart, test results, communication with consultants and direct patient care
Anticipated Discharge: Within 24 hours
Subjective/Interval History
-
Date of Service: December 23, 2023
Objective Data
-
Labs:
Laboratory Results
12/23/23
06:31
WBC 5.6
Hgb 10.2 L
Hct 30.1 L
Plt Count 166
Sodium 146 H
Potassium 3.6
Chloride 108 H
Carbon Dioxide 22
BUN 11
Creatinine 1.0
Glucose 103 H
Calcium 9.1
Vital Signs:
Vital Signs
Temp Pulse Resp BP Pulse Ox
97.3 F 112 18 167/92 96
12/23/23 07:10 12/23/23 07:10 12/23/23 07:10 12/23/23 07:10 12/23/23 07:10
I&O
12/22/23 12/23/23 12/24/23
06:59 06:59 06:59
Intake Total 2573 / 2573 2480 / 2480
Output Total 400 / 400
Balance 2173 / 2173 2480 / 2480
Review of Systems
-
History Source: Patient
All other systems: Reviewed and negative
Physical Exam
-
General: No Apparent Distress
HEENT: Moist Mucous Membranes and Other (denied any visual symptoms like pain, bluriness, diplopia, L eye not red, no signs of uveitis on exam)
Respiratory: Clear to Auscultation
Cardiac: Regular Rhythm and Murmur (midsystolic, chronic as per patient)
GI: Soft, Nontender and Nondistended
Skin: Warm and Other (crusted lesions on the face)
Psych: Calm
[2023-12-23] MEDS: CYMBALTA DELAYED RELEASE 60 MG PO (08:56)
[2023-12-23] MEDS: LR 1000 IV ×2 (08:56→21:07)
[2023-12-23] MEDS: ASPIR LOW (ENTERIC COATED) 81 MG PO (08:56)
[2023-12-23] MEDS: PROCARDIA XL (EXTENDED RELEASE) 30 MG PO (08:56)
[2023-12-23 09:09] LABS: % Basophils 0.2 % (0-2); % Eosinophils 1.3 % (0-6); % Immature Granulocytes 0.5 % (0-0.5); % Lymphocytes 54.4 % (20.5-51.1); % Monocytes 12.6 % (1.7-9.3); Absolute Eosinophils 0.1 10^3/uL (0-0.7); Absolute Monocytes 0.7 10^3/uL (0.1-0.6); Absolute Neutrophils 1.7 10^3/uL (1.4-6.5); Nucleated Red Blood Cells % 0 %
[2023-12-23 11:54] VITALS: BP 144/82
[2023-12-23] MEDS: TYLENOL 650 MG PO (13:25)
[2023-12-23 15:20] VITALS: BP 117/57
[2023-12-23] MEDS: MELATONIN 3 MG PO (21:03)
[2023-12-23] MEDS: PRAVACHOL 40 MG PO (21:03)
[2023-12-23] MEDS: SINEQUAN 10 MG PO (21:03)
[2023-12-23 23:14] VITALS: BP 147/81
[2023-12-24] MEDS: ZOVIRAX INJECTION 113 MG IV ×2 (05:24→18:34)
[2023-12-24] MEDS: SYNTHROID 50 MCG PO (05:25)
[2023-12-24 05:26] VITALS: BMI 26.5
[2023-12-24] MEDS: TYLENOL 650 MG PO (05:36)
[2023-12-24 07:15] VITALS: BP 141/72
[2023-12-24] MEDS: CYMBALTA DELAYED RELEASE 60 MG PO (08:01)
[2023-12-24] MEDS: PROCARDIA XL (EXTENDED RELEASE) 30 MG PO (08:13)
[2023-12-24] MEDS: ASPIR LOW (ENTERIC COATED) 81 MG PO (08:15)
--- NOTE | 2023-12-24 08:55 | W.PN.ID1 ---
Addendum entered and electronically signed by Carlie Santiago MD 12/24/23 13:13:
I saw and evaluated the patient. I reviewed the resident�s note and agree with findings and plan as documented in the resident�s note.
Exam: lesions left forehead, around eye including lower eyelid, left cheek, down side of nose, tip of nose: 95% crusted
left conjunctiva erythema resolved.
# Left V1 herpes zoster with suspected orbital involvement
-Unvaccinated against zoster.
- Outpt optho evaluation, per ophtho.
- IV acyclovir 10mg/kg q12 (renally adjusted) (day 6 of 7).
- Follow renal function closely.
- Eventual outpatient Shingrix vaccination x 2 doses.
- Continue isolation until all lesions crusted.
# Symptomatic uncomplicated UTI
- Ucx pending
- s/p dose ceftriaxone today
- Tomorrow, transition to empiric cephalexin 500mg po tid x 5 days.
Original Note:
Date of Service
Date of Service: December 24, 2023
Today's Communication
- Continue acyclovir.
- Cephalexin from tomorrow.
Assessment / Plan
Herpes zoster ophthalmicus (V1)
History of chicken pox, age 8
- Did not receive the Shingles vaccine.
- Suspected orbital involvement; ophthalmology consultation.
- No visual disturbances or other ocular symptoms.
- Does have intermittent sharp and shooting pain over the region and ear (which might be referred).
- Continue IV acyclovir (day 6), renally dosed; follow renal function.
- Isolation until lesions crust over.
Suspected acute urinary tract infection
- Frequency and urgency since 12-23-23.
- UC pending.
- Afrbrile with stable vitals; no leukocytosis.
- Can do cephalexin 500 mg TID from tomorrow.
Conditions known prior to admission:
Ambulatory dysfunction
Recurrent falls
Hyperlipidemia
Hypothyroidism
Essential hypertension
Insomnia
Depression
Chronic kidney disease, stage IIIa
History of CVA
Chief Complaint
-: Other (rash)
Subjective / Review of Systems
Review of Systems: No Fever, No Chills and No Headache
Vital Signs / Physical Exam
Vital Signs
Vital Signs
Temp Pulse Resp BP Pulse Ox
98.3 F 88 20 146/72 95
12/24/23 07:15 12/24/23 08:13 12/24/23 07:15 12/24/23 08:13 12/24/23 07:15
Physical Exam
Constitutional: No Acute Distress and Comfortable
Head: Normocephalic
Eyes: Erythema (LEFT eyelid mild erythema with some swelling)
Oropharyngeal: Benign
Cardiovascular: Regular Rate and S1/S2
Pulmonary: Clear and Non Labored
Gastrointestinal: Soft, Non Tender and Non Distended
Extremities: Negative Edema, Clubbing or Cyanosis
Skin: Rash (patchy and erythematous rash limited to the LEFT forehead and ocular area - V1 dermatome. Vesicles now appear crusted.)
Neurological: Awake, Alert, Oriented and No Motor Deficits
Psychological: Calm
Objective Data
Lab Data
Lab Results
12/23/23 06:31
Estimated Creat Clear 36 ml/min 12/23/23 06:31
Total Bilirubin 0.6 mg/dl (0.2-1.3) 12/20/23 08:13
AST 26 U/L (14-36) 12/20/23 08:13
ALT 15 U/L (0-35) 12/20/23 08:13
Alkaline Phosphatase 67 U/L (38-126) 12/20/23 08:13
Most recent labs reviewed.
--- NOTE | 2023-12-24 09:03 | W.PN.HOSP.TC ---
Today's Communication/Plan
-
Antiviral. IV ceftriaxone.
Assessment / Plan
Assessment / Plan
Physical exam:
General: Acutely ill but nontoxic.
HEENT: Normocephalic, Atraumatic and Moist Mucous Membranes
Respiratory: Clear to Auscultation; Negative Wheezes, Rales or Rhonchi
Cardiac: Regular Rhythm and S1/S2
GI: Soft, Nontender and Nondistended
Musculoskeletal: No Clubbing, No Cyanosis and No Edema
Skin: Facial rash in dermatomal distribution.
Neuro: Awake, Alert and Oriented
Psych: Calm
A/P:
#Herpes zoster
spreading V1 dermatome
ID started IV Acyclovir, follow Cr. no Hx of immunosuppression or CA, however as per hospital policy - airborne precautions. Cont IVF while on IV acyclovir but can switch to oral valacyclovir either later today or tomorrow.
No visual disturbances or pain, but L eye redness, concern for ophthalmicus
Ophthalmology: outpatient follow up with absent vision disturbances or ocular pain
#Urinary symptoms, cystitis/UTI
UA with pyuria 30-40 WBC and many urine bacteria and positive leukocyte esterase
Empiric IV Rocephin
Follow-up urine culture
#Hypernatremia
Switch to hypotonic fluid
#Weakness, Hx of frequent falls
PT/OT: home PT vs rehabb depending on family ability to provide standby assistance
Head CT without acute findings
cortisol AM 11.3 on 12/19
#Hypothyroidism
TSH WNL
cont Synthroid
#Essential HTN
started nifedipine
#HLD
#CKD stage 3a-b
#Anxiety
#Hx of CVA
cont home meds
#Mild anemia
outpatient follow up with PCP
#Mild leukopenia
most liekly 2/2 acute disease
follow CBC
DVt ppx hep
full code
Anticipated Discharge: 24 - 48 hours
Subjective/Interval History
-
Date of Service: December 24, 2023
Complains of some urinary frequency and urgency. Afebrile. Forehead skin lesions improving.
Objective Data
-
Labs:
Laboratory Results
12/24/23
08:54
Sodium Pending
Potassium Pending
Chloride Pending
Carbon Dioxide Pending
BUN Pending
Creatinine Pending
Glucose Pending
Calcium Pending
Vital Signs:
Vital Signs
Temp Pulse Resp BP Pulse Ox
98.3 F 88 20 146/72 95
12/24/23 07:15 12/24/23 08:13 12/24/23 07:15 12/24/23 08:13 12/24/23 07:15
I&O
12/23/23 12/24/23 12/25/23
06:59 06:59 06:59
Intake Total 2480 / 2480 2685 / 2685
Output Total 900 / 900
Balance 2480 / 2480 1785 / 1785
[2023-12-24 10:15] LABS: Blood Urea Nitrogen 11 mg/dl (7-17); Calcium 9.4 mg/dl (8.4-10.2); Carbon Dioxide 26 mmol/L (22-30); Chloride 105 mmol/L (98-107); Estimated Creatinine Clearance 32 ml/min; Glucose 116 mg/dl (70-99); Potassium 3.5 mmol/L (3.5-5.1); Sodium 146 mmol/L (135-145); eGFR 48.63
[2023-12-24 11:19] LABS: Urine Albumin Negative (Neg - Trace); Urine Bilirubin Negative (Negative); Urine Character Slightly Cloudy (Clear); Urine Color Yellow; Urine Glucose Negative (Negative); Urine Ketone Negative (Negative); Urine Leukocyte 2+ (Negative); Urine Nitrite Negative (Negative); Urine Occult Blood 2+ (Negative); Urine Urobilinogen Negative (Neg - 1+)
[2023-12-24 11:34] LABS: Urine Bacteria Many (Negative); Urine White Cell 30-40 /HPF (0-5)
[2023-12-24] MEDS: LR IV (11:55)
[2023-12-24] MEDS: STERILE WATER FOR INJECTION 10 ML IV (12:07)
[2023-12-24] MEDS: ROCEPHIN 1000 MG IV (12:07)
[2023-12-24] MEDS: 0.45%NACL 1000 IV (12:07)
--- NOTE | 2023-12-24 12:20 | PTCARENOTE ---
pt with new uti. IVF continued- OTD of IV rocephin. will started on PO q8. [facility].
--- NOTE | 2023-12-24 14:37 | CM ---
Patient + UTI
Cont w/IVF - will received OTD IV abx.
Spoke with Rosemar[facility] at [facility] & bed is available for tomorrow.
Discussed with daughter Katy, agreeable with plan.
PLAN: [facility]
Daughter will transport
[2023-12-24 15:30] VITALS: BP 154/96
[2023-12-24] MEDS: PRAVACHOL 40 MG PO (21:54)
[2023-12-24] MEDS: XANAX 0.25 MG PO (21:54)
[2023-12-24] MEDS: SINEQUAN 10 MG PO (21:54)
[2023-12-24 23:00] VITALS: BP 130/64
[2023-12-25] MEDS: 0.45%NACL 1000 IV (01:23)
[2023-12-25] MEDS: ZOVIRAX INJECTION 113 MG IV (05:16)
[2023-12-25] MEDS: KEFLEX 500 MG PO (05:16)
[2023-12-25] MEDS: SYNTHROID 50 MCG PO (05:16)
[2023-12-25 05:25] VITALS: BMI 26.6
[2023-12-25 07:15] VITALS: BP 141/70
[2023-12-25 08:02] LABS: Blood Urea Nitrogen 10 mg/dl (7-17); Calcium 9.2 mg/dl (8.4-10.2); Carbon Dioxide 23 mmol/L (22-30); Chloride 104 mmol/L (98-107); Estimated Creatinine Clearance 29 ml/min; Glucose 105 mg/dl (70-99); Potassium 3.4 mmol/L (3.5-5.1); Sodium 145 mmol/L (135-145); eGFR 43.81
[2023-12-25] MEDS: PROCARDIA XL (EXTENDED RELEASE) 30 MG PO (08:06)
[2023-12-25] MEDS: ASPIR LOW (ENTERIC COATED) 81 MG PO (08:07)
[2023-12-25] MEDS: CYMBALTA DELAYED RELEASE 60 MG PO (08:07)
--- NOTE | 2023-12-25 08:38 | W.PN.HOSP.TC ---
Today's Communication/Plan
-
Discharge planning today.
Assessment / Plan
Assessment / Plan
Physical exam:
General: No acute distress
HEENT: Normocephalic, Atraumatic and Moist Mucous Membranes
Respiratory: Clear to Auscultation; Negative Wheezes, Rales or Rhonchi
Cardiac: Regular Rhythm and S1/S2
GI: Soft, Nontender and Nondistended
Musculoskeletal: No Clubbing, No Cyanosis and No Edema
Skin: Facial rash in dermatomal distribution with crusted lesions.
Neuro: Awake, Alert and Oriented
Psych: Calm
A/P:
#Herpes zoster
spreading V1 dermatome
ID started IV Acyclovir, follow Cr. no Hx of immunosuppression or CA, however as per hospital policy - airborne precautions. Cont IVF while on IV acyclovir but can switch to oral valacyclovir today.
No visual disturbances or pain, but L eye redness, concern for ophthalmicus
Ophthalmology: outpatient follow up with absent vision disturbances or ocular pain
#UTI
UA with pyuria 30-40 WBC and many urine bacteria and positive leukocyte esterase
Empiric IV Rocephin and switch to oral cephalexin
Follow-up urine culture with E. coli
#Hypernatremia
Resolved
Switch to hypotonic fluid
#Weakness, Hx of frequent falls
PT/OT: home PT vs rehabb depending on family ability to provide standby assistance
Head CT without acute findings
cortisol AM 11.3 on 12/19
#Hypothyroidism
TSH WNL
cont Synthroid
#Essential HTN
started nifedipine
#HLD
#CKD stage 3a-b
#Anxiety
#Hx of CVA
cont home meds
#Mild anemia
outpatient follow up with PCP
#Mild leukopenia
most liekly 2/2 acute disease
follow CBC
DVt ppx hep
full code
Anticipated Discharge: Today
Subjective/Interval History
-
Date of Service: December 25, 2023
Patient feels well today. Afebrile
Objective Data
-
Labs:
Laboratory Results
12/25/23
06:36
Sodium 145
Potassium 3.4 L
Chloride 104
Carbon Dioxide 23
BUN 10
Creatinine 1.2 H
Glucose 105 H
Calcium 9.2
Vital Signs:
Vital Signs
Temp Pulse Resp BP Pulse Ox
98.9 F 98 16 141/70 93
12/25/23 07:15 12/25/23 08:06 12/25/23 07:15 12/25/23 08:06 12/25/23 07:15
I&O
12/24/23 12/25/23 12/26/23
06:59 06:59 06:59
Intake Total 2685 / 2685 1416 / 1416
Output Total 900 / 900
Balance 1785 / 1785 1416 / 1416
[2023-12-25] MEDS: VALTREX 1000 MG PO (09:26)
[2023-12-25] MEDS: KCL 40 MEQ PO (09:26)
--- NOTE | 2023-12-25 11:00 | W.PN.ID1 ---
Date of Service
Date of Service: December 25, 2023
Today's Communication
See below.
Decrease valacyclovir dose.
Follow final Ucx.
Assessment / Plan
# Left V1 herpes zoster with suspected ocular involvement
-Unvaccinated against zoster.
- Outpt optho evaluation, per ophtho.
- s/p 6 days IV acyclovir -> transitioned to valacyclovir 1g po tid by hospitalist today.
CKD with CrCl 29-32. Decrease valacyclovir dose to 1g po bid through 12/28/23. ( 10 days total antiviral tx)
- Eventual outpatient Shingrix vaccination x 2 doses.
- Lesions now all crusted. Can dc airborne isolation.
-Anticipate dc to SNF today.
# Uncomplicated symptomatic UTI
- Ucx 100K E. coli, susceptibility pending
- s/p dose ceftriaxone yesterday
- Today transitioned to cephalexin 500mg po tid x 5 days, unless final cx resistant to cefazolin, then change abx.
Conditions known prior to admission:
Ambulatory dysfunction
Recurrent falls
Hyperlipidemia
Hypothyroidism
Essential hypertension
Insomnia
Depression
Chronic kidney disease, stage IIIa
History of CVA
Chief Complaint
-: Other (rash)
Subjective / Review of Systems
Urinary frequency and urgency has improved.
Vital Signs / Physical Exam
Vital Signs
Vital Signs
Temp Pulse Resp BP Pulse Ox
98.9 F 98 16 141/70 93
12/25/23 07:15 12/25/23 08:06 12/25/23 07:15 12/25/23 08:06 12/25/23 07:15
Physical Exam
Constitutional: No Acute Distress and Comfortable
Eyes: Other (Conjunctiva clear)
Pulmonary: Clear
Gastrointestinal: Soft, Non Tender and Non Distended
Genito-Urinary: Negative CVA Tenderness
Skin: Rash (Left upper face lesions all crusted. )
Neurological: AO x 3
Objective Data
Lab Data
Lab Results
12/23/23 06:31
12/25/23 06:36
Estimated Creat Clear 29 ml/min 12/25/23 06:36
Total Bilirubin 0.6 mg/dl (0.2-1.3) 12/20/23 08:13
AST 26 U/L (14-36) 12/20/23 08:13
ALT 15 U/L (0-35) 12/20/23 08:13
Alkaline Phosphatase 67 U/L (38-126) 12/20/23 08:13
Most recent labs reviewed.
Micro Results:
12/24/23 10:50 Urine Culture - Preliminary
Urine Escherichia coli
--- NOTE | 2023-12-25 11:59 | CM ---
Patient seen at bedside.
Spoke with Dr. Danielson & patient to be discharged to [facility] today.
IMM explained & signed.
Spoke with daughter Katy
PLAN: [facility]
daughter Katy to transport.
Buck
Report #: [id number]
Fax #: [phone]
--- NOTE | 2023-12-25 12:47 | W.DCSUMMARY ---
Discharge Summary
Discharge Data
Date of Admission: 12/20/23
Date of Discharge: 12/25/23
-
Pending Results: No
Hospital Course
Patient 88 years old female history of chickenpox, CVA, hypertension, hyperlipidemia, CKD, hypothyroidism, anxiety, insomnia, came into the hospital with generalized weakness fall and also new onset of rash left periorbital left forehead area.
Patient was diagnosed with herpes zoster ophthalmicus and was started on IV acyclovir. Patient was hydrated intravenously while receiving acyclovir. She also had uncomplicated UTI. She had been able to switch to oral valacyclovir renally dose to
finish course until 12/27. She had been on airborne isolation but discontinued since lesions now are all crusted. Recommended outpatient Shingrix vaccination. She also will switch to oral antibiotics for her UTI for 5 days course. She will have
outpatient follow-up with ophthalmology. Otherwise she has been identified as a candidate for skilled rehab. Patient will be discharged in stable condition today.
Discharge duration: 35 minutes
Discharge Plan
-
Patient Disposition: Care Home/SNF
Discharge Diagnosis/Procedures: Episodes during with suspicion for ocular involvement, left V1. Urinary tract infection.
Diet: Low Cholesterol
Activity: As tolerated
Blood Work: Please PCP to order CBC, BMP within 1 week
Referrals:
Mary Beth Ledbetter PA-C [Family Provider] - in less than 1 week
Tracy Mandujano MD [Active] - in less than 1 week ( )
Carlie Santiago MD [Active] - in one to two weeks
Prescriptions:
New
valacyclovir 500 mg Tablet
1,000 mg PO BID 4 Days Qty: 16 0RF
cephalexin 500 mg Capsule
500 mg PO Q8H 5 Days Qty: 15 0RF
Continued
aspirin 81 MG tablet,delayed release (DR/EC)
81 mg PO DAILY
pravastatin 40 MG tablet
40 mg PO HS
doxepin 10 MG capsule
10 mg PO HS
duloxetine 60 MG capsule,delayed release(DR/EC)
60 mg PO DAILY
Patient Comments:
01/25/2021: taken w/ 30mg = 90mg
multivitamin with folic acid [Tab-A-Usha] 1 TABLET tablet
1 tab PO DAILY
rszmopyb-xdglonxhw-FA 3.5-10,000-1 mg/mL-unit/mL-% solution
4 drp LEFT EAR TID
sennosides [senna] 8.6 mg Tablet
8.6 mg PO DAILYPRN PRN (Reason: constipation)
levothyroxine 50 mcg tablet
50 mcg PO DAILY
Iron Extended Release
1 tab PO .2X WEEKLY
alprazolam 0.25 MG tablet
0.25 mg PO HS
Patient Comments:
12/18/2023: last filled 11/16/23, 90 tabs for 30 days from [facility]
Discontinued
azithromycin 250 mg tablet
250 mg PO PER PKG DIR
Discharge Orders:
Discharge Patient (As Directed); Ordered 12/25/23
Ordered By: Armando Danielson
Discharge Date and Time
Print Language: UZBEK
[2023-12-25 14:00] VITALS: BP 130/78
== END 2023-12-25 14:57 | DRG 125 ==
LOC: 2 NORTH 12:10
PROVIDERS: Internal Medicine; Student in an Organized Health Care Education/Training Program; ADMITTING PHYSICIAN Internal Medicine; ATTENDING PHYSICIAN Hospitalist; EMERGENCY PHYSICIAN Student in an Organized Health Care Education/Training Program; FAMILY PHYSICIAN Physician Assistant Medical; OTHER PHYSICIAN Internal Medicine Infectious Disease
DX: B02.30 Zoster ocular disease, unspecified (principal); E87.0 Hyperosmolality and hypernatremia; N30.90 Cystitis, unspecified without hematuria; I95.1 Orthostatic hypotension; R29.6 Repeated falls; I12.9 Hypertensive chronic kidney disease with stage 1 through stage 4 chronic kidney disease, or unspecified chronic kidney disease; N18.32 Chronic kidney disease, stage 3b; I65.21 Occlusion and stenosis of right carotid artery; E78.00 Pure hypercholesterolemia, unspecified; F32.A Depression, unspecified; F41.9 Anxiety disorder, unspecified; E03.9 Hypothyroidism, unspecified; G47.00 Insomnia, unspecified; D63.1 Anemia in chronic kidney disease; R26.89 Other abnormalities of gait and mobility; B96.20 Unspecified Escherichia coli [E. coli] as the cause of diseases classified elsewhere; H66.90 Otitis media, unspecified, unspecified ear; Z86.19 Personal history of other infectious and parasitic diseases; Z86.73 Personal history of transient ischemic attack (TIA), and cerebral infarction without residual deficits; Z79.890 Hormone replacement therapy; Z79.82 Long term (current) use of aspirin
CPT/HCPCS: 70470; 80048; 80053; 81003; 81015; 82533; 84443; 85025; 85027; 87077; 87086; 87186; 93005; 97116; 97162; 97166; 97530; 99285; Q9967

== ENCOUNTER → 2023-12-28 12:23 | Outpatient (REF) | payer OTHER, MEDICARE, BC, SELFPAY ==
[2023-12-28 12:51] LABS: Hematocrit 28.5 % (37.0-47.0); Hemoglobin 9.6 g/dL (12.0-16.0); Mean Corp Hgb Conc. 33.7 g/dL (33.0-37.0); Mean Corpuscular Hgb 31.9 pg (27.0-31.0); Mean Corpuscular Volume 94.7 fL (81.0-99.0); Platelet Count 221 10^3/uL (130-400); Red Blood Cell Count 3.01 10^6/uL (4.20-5.40); Red Cell Dist. Width 13.6 % (11.5-14.5); White Blood Cell Count 5.9 10^3/uL (4.8-10.8)
[2023-12-28 13:22] LABS: ALT (SGPT) 18 U/L (0-35); AST (SGOT) 30 U/L (14-36); Albumin 3.8 g/dl (3.5-5.0); Alkaline Phosphatase 74 U/L (38-126); Blood Urea Nitrogen 22 mg/dl (7-17); Calcium 9.5 mg/dl (8.4-10.2); Carbon Dioxide 27 mmol/L (22-30); Chloride 104 mmol/L (98-107); Glucose 92 mg/dl (70-99); Magnesium 1.9 mg/dl (1.6-2.3); Potassium 4.2 mmol/L (3.5-5.1); Sodium 141 mmol/L (135-145); Total Bilirubin 0.5 mg/dl (0.2-1.3); Total Protein 6.3 g/dl (6.3-8.2)
== END ==
LOC: OLABWHC 12:23
PROVIDERS: ATTENDING PHYSICIAN Family Medicine
DX: B02.9 Zoster without complications (principal); N39.0 Urinary tract infection, site not specified; I10 Essential (primary) hypertension
CPT/HCPCS: 36415; 80053; 83735; 85027

== ENCOUNTER → 2024-01-08 15:00 | Outpatient (REF) | payer OTHER, MEDICARE, BC, SELFPAY ==
[2024-01-09 12:37] LABS: Urine Albumin Negative (Neg - Trace); Urine Bilirubin Negative (Negative); Urine Character Clear (Clear); Urine Color Yellow; Urine Glucose Negative (Negative); Urine Ketone Negative (Negative); Urine Leukocyte Negative (Negative); Urine Nitrite Negative (Negative); Urine Occult Blood Negative (Negative); Urine Urobilinogen Negative (Neg - 1+)
== END ==
LOC: OLABWHC 15:00
PROVIDERS: ATTENDING PHYSICIAN Family Medicine
DX: N39.0 Urinary tract infection, site not specified (principal)
CPT/HCPCS: 36415; 81003; 87077; 87086

== ENCOUNTER 2024-05-02 02:51 | Observation (INO) | payer MEDICARE, BC, SELFPAY ==
[2024-05-01 23:58] VITALS: BP 107/74; BMI 27.3
[2024-05-02 00:34] LABS: % Basophils 0.2 % (0-2); % Eosinophils 0.8 % (0-6); % Immature Granulocytes 1.8 % (0-0.5); % Lymphocytes 21.8 % (20.5-51.1); % Monocytes 2.4 % (1.7-9.3); Absolute Eosinophils 0.1 10^3/uL (0-0.7); Absolute Immature Granulocytes 0.2 10^3/uL (0-0.05); Absolute Lymphocytes 2.1 10^3/uL (1.2-3.4); Absolute Monocytes 0.2 10^3/uL (0.1-0.6); Absolute Neutrophils 7.1 10^3/uL (1.4-6.5); Hematocrit 41.2 % (37.0-47.0); Hemoglobin 13.5 g/dL (12.0-16.0); Mean Corp Hgb Conc. 32.8 g/dL (33.0-37.0); Mean Corpuscular Hgb 30.7 pg (27.0-31.0); Mean Corpuscular Volume 93.6 fL (81.0-99.0); Mean Platelet Volume 12.1 fL (7.4-10.4); Nucleated Red Blood Cells % 0 %; Platelet Count 193 10^3/uL (130-400); Red Cell Dist. Width 12.9 % (11.5-14.5); White Blood Cell Count 9.7 10^3/uL (4.8-10.8)
[2024-05-02 01:00] VITALS: BP 94/53
[2024-05-02 01:07] LABS: Blood Urea Nitrogen 25 mg/dl (7-17); Calcium 9.1 mg/dl (8.4-10.2); Carbon Dioxide 17 mmol/L (22-30); Chloride 106 mmol/L (98-107); Estimated Creatinine Clearance 26 ml/min; Glucose 196 mg/dl (70-99); Lipase 69 U/L (23-300); Sodium 142 mmol/L (135-145)
--- NOTE | 2024-05-02 01:28 | ED.CVA ---
History of Present Illness
General
Chief Complaint: CVA/TIA Symptoms
Source: patient and family
Exam Limitations: none
Time Seen by Provider: 05/02/24 01:00
Nursing documentation reviewed up to this point in time: agreed with
Onset of Stroke Symptoms
Onset of symptoms known: Yes
Date of onset of symptoms: 05/02/24
History of Present Illness
History of Present Illness:
This a pleasant 88-year-old female that presents to the emergency department after a brief episode of slurring speech and possible loss of consciousness. According to daughter, patient has anxiety and takes Xanax on a nightly basis. She took 2
Xanax tonight and short while later, patient began slurring speech and became unresponsive. Daughter was concerned because she take Xanax regularly and this is never happened before. The episode lasted minutes and then patient was back to baseline
mental status. Patient has had a stroke in the past. In 2009 she had a CVA that had left-sided residual deficits. She does have a history of hypertension and hyperlipidemia. She has no complaints tonight other than constipation which is chronic
for her. Denies fever, chills, nausea or vomiting.
Past History
Past History
ED Past Medical History: CVA, HTN, Hypercholesterolemia and Hypothyroidism
ED Past Surgical History: Other (History of having an angiogram)
Social History
Tobacco: Non-smoker
Personal:
Living: with family
Employment: Retired
Review of Systems
Review of Systems
Allergies reviewed?: Yes
All Other Systems: ROS reviewed and negative except as documented in HPI and ROS
ABD/GI: Reports abdominal pain
Psychiatric: Reports anxiety
Phy Exam
General Physical Exam
General Presentation: well appearing and no apparent distress
General Skin: warm and dry
General Habitus: normal
General Mental: alert
General Hydration: appears well hydrated
ENT Exam
ENT Exam: EOMI, pharynx normal, neck supple and normocephalic
Eye Exam
Eye Exam: PERRL, cornea clear and conjunctiva normal
Cardiovascular Exam
Cardiovascular Exam: regular rate/rhythm, no edema, no murmur and normal peripheral pulses
Pulmonary Exam
Pulmonary Exam: lungs clear, no respiratory distress, no rales, no crackles, no rhonchi, no stridor, no wheezing and no cough
Gastrointestinal Exam
Gastrointestinal Exam: normal bowel sounds, non tender, soft, no organomegaly, no pulsatile mass and non distended
Neurological Exam
Neurological Exam: alert, oriented x3, no motor deficits and speech normal
Musculoskeletal Exam
Musculoskeletal Exam: full ROM and no edema
Skin Exam
Skin Exam: normal color, warm/dry, no rash and no petechia
Psychiatric Exam
Psychiatric Exam: normal mood/affect
Scores
NIH Stroke Score
Level of Consciousness: 0 - Alert
LOC Questions: 0-Answers both correctly
LOC Commands: 0-Performs both correctly
Best Horizontal Gaze: 0-Normal
Visual [place]: 0=Normal, no visual loss
Facial Palsy: 0=Normal, symmetrical
Motor - Right Arm: 0=No drift 10 seconds
Motor - Left Arm: 0=No drift 10 seconds
Motor - Right Le-No drift 5 seconds
Motor - Left Le-No drift 5 seconds
Limb Ataxia: 0-Absent
Sensation: 0-Normal
Best Language: 0-No aphasia
Dysarthria: 0-Normal
Extinction and Inattention: 0-No abnormality
Total Score:: 0
Course
Orders/Labs/Results
Orders:
Orders
05/02/24 00:17
EKG [Electrocardiogram (*1)] Urgent
Reason for Study: Tachycardia
EKG- Treatment ONCE
05/02/24 00:18
Basic Metabolic Panel Urgent
Comment: NO K
Lipase Urgent
05/02/24 00:19
Complete Blood Count/With Diff Urgent
05/02/24 00:41
CT Head W/o Iv Contrast Urgent
Comment:
Reason For Exam: slurred speech
05/02/24 02:02
Admit/Transfer Patient As Directed
Co-Sign Provider:
Level of Care: Observation services
Assign to:: Telemetry
Physician / Group: hospitalist
Diagnosis: slurred speech
Reason for Telemetry: CVA/TIA
Date to Stop Telemetry: 05/05/24
Time to Stop Telemetry: 11:00
PRN Pain Medication Management As Directed
May give lesser potent ordered pain med per pt: Yes
preference::
Protocol:: Medication orders for pain may be administered in a
manner that supports deferring to patient preference
when the pt is:
- Requesting an ordered lesser potent pain medication.
Least to most potent pain medications are defined
as: acetaminophen < NSAID < tramadol < opioids
(morphine, oxycodone, hydromorphone).
- Requesting a lesser dose of the same medication IF
ORDERED.
- Requesting a less intrusive route of administration
if both routes are prescribed by the provider (PO <
IV).
05/02/24 02:04
Code Status As Directed
Resuscitation Status: Full Code
05/02/24 02:06
Acetaminophen [Tylenol] 650 mg PO NOW STA
Famotidine [Pepcid] 20 mg IV NOW STA
Mag/Al/Simethicone [Maalox Plus] 1 tablet PO NOW STA
05/02/24 02:09
Lactated Ringers [Lr] 500 ml IV BOLUS
05/02/24 03:00
Flush (0.9% Sodium Chloride) [Flush (Nss)] See Dose Instructions IV PER PROTOCOL
05/05/24 11:00
DC Protocol for Telemetry ONCE
Abnormal Lab Results
05/02/24 05/02/24
00:18 00:19
MCHC 32.8 L g/dL
(33.0-37.0)
MPV 12.1 H fL
(7.4-10.4)
Abs Immat Gran (auto) 0.2 H 10^3/uL
(0-0.05)
Absolute Neuts (auto) 7.1 H 10^3/uL
(1.4-6.5)
Immature Gran % 1.8 H %
(0-0.5)
Carbon Dioxide 17 L mmol/L
(22-30)
BUN 25 H mg/dl
(7-17)
Creatinine 1.3 H mg/dL
(0.6-1.0)
Glucose 196 H mg/dl
(70-99)
05/02/24 00:19
05/02/24 00:18
Vital Signs
Initial and Last Documented VS:
Initial Vital Signs
Temp Pulse Resp BP Pulse Ox
96.5 F L 93 24 107/74 100
05/01/24 23:58 05/01/24 23:58 05/01/24 23:58 05/01/24 23:58 05/01/24 23:58
Last Documented Vital Signs
Temp Pulse Resp BP Pulse Ox
96.5 F L 95 24 94/53 96
05/01/24 23:58 05/02/24 02:30 05/02/24 02:30 05/02/24 01:00 05/02/24 02:15
*Radiology
Radiology exam reviewed: radiology read reviewed
*Pulse Oximetry
Patient hypoxic: no
*EKG
Interpreted by ED Provider?: Yes
EKG Intrepretation Date: 05/02/24
Interpretation: normal
Comparison EKG: changes noted
Heart Rate: 90
Rate: normal
Rhythm: sinus
[place]: left axis deviation
Interval: normal interval
Ischemia: non-specific ST changes
*Leather Sprayer Interpretation
Rate: normal
Interpretation: normal
*Critical Care Note
Total Time (30-74mins, 75-104mins- exclusive of procedures): Not Applicable
Update Note
Update Note:
CT scan negative. At this point the differential is TIA versus medication reaction. Patient has been taking this medication chronically and has never had an issue. Patient to be brought into the hospitalist service for continued observation.
Currently patient is asymptomatic. She does have residual left-sided deficits but family assures me that they do not notice anything new. NIH 0 at time of admission.
ED Attending Note
-
Portions of this chart may have been created with voice recognition software.� Occasional wrong word or��sound alike� substitutions may have occurred due to the inherent limitations of voice recognition software.
Discharge Plan
Departure
Patient Disposition: Admit
Date of Disposition: 05/02/24
Time of Disposition: 01:48
Admit to: Telemetry
Presentation/result/management discussed w/ accepting MD/DO: Hospitalist
Condition: Good
Discharge Problem:
TIA (transient ischemic attack), Medication reaction
Prescriptions:
No Action
aspirin 81 MG tablet,delayed release (DR/EC)
81 mg PO DAILY
pravastatin 40 MG tablet
40 mg PO HS
doxepin 10 MG capsule
10 mg PO HS
duloxetine 60 MG capsule,delayed release(DR/EC)
60 mg PO DAILY
Patient Comments:
01/25/2021: taken w/ 30mg = 90mg
multivitamin with folic acid [Tab-A-Usha] 1 TABLET tablet
1 tab PO DAILY
levothyroxine 50 mcg tablet
50 mcg PO DAILY
alprazolam 0.25 MG tablet
0.25 mg PO HS
Patient Comments:
12/18/2023: last filled 11/16/23, 90 tabs for 30 days from [facility]
Referrals:
Mary Beth Ledbetter PA-C [Family Provider] -
Interventions
Interventions:
*Risk Screen - Suicide Last Done: 05/01/24 23:58
*General Assessment Last Done: 05/01/24 23:58
*Neglect/Abuse Screening Last Done: 05/01/24 23:58
ED- Fall Risk Assessment Last Done: 05/01/24 23:58
*ED COVID-19 Vaccine History Last Done: 05/01/24 23:58
ED- Pulmonary Assessment Last Done: 05/02/24 00:22
ED- Neurological Assessment Last Done: 05/02/24 00:21
ED- Cardiac Assessment Last Done: 05/02/24 00:21
ED Swallowing Screen Last Done: 05/02/24 01:54
Discharge Date and Time
Print Language: PALAUAN
--- NOTE | 2024-05-02 01:46 | HPS.HSE ---
Family Physician
-
Family Physician: Mary Beth Ledbetter
Chief Complaint
-
Slurred speech
History of Present Illness
This is a very pleasant 88-year-old female with past medical history of CVA, hyperlipidemia and hypertension who presented to the emergency department with brief episode of slurring of speech and possible loss of consciousness.
Patient herself was alert and oriented and denied any new symptoms. She stated that she with one of her daughters with exploring a nursing facility yesterday. She was tired when she got home she was somewhat upset. She reported some mild
abdominal discomfort. She also reported having trouble going to bed. She took 2 Xanax tonight and short while later, patient began slurring speech and became unresponsive. Daughter was concerned because she take Xanax regularly and this is never
happened before. The episode lasted minutes and then patient was back to baseline mental status. Patient reported taking only 1 Xanax. She was also requesting doxepin.
On arrival in the emergency department he was afebrile, blood pressure was 94/50 with a pulse of 90, temperature was 96.5. ECG showed normal sinus rhythm at a rate of [address] or T wave changes. CT of the head showed no acute
interval changes. CBC was completely unremarkable. Electrolytes were within normal range. BUN/creatinine were stable compared to prior at 25 and 1.3.
Medical History
Past Medical History
Past Medical History: Reports CVA (CVA in 2010 with residual left-sided deficit), Hypercholesterolemia and Hypothyroidism
Past Surgical History: Reports None
Social History
Tobacco: Non-smoker
Alcohol: None
Drug: None
Personal:
Living: With Family
Employment: Retired
Family History
Family History: Not pertinent
Allergies / Home Medications
Allergies reflects when Allergies were last updated in [facility].
Home Medications with original date entered in [facility]
Allergy/Medication List:
Allergies
Allergy/AdvReac Type Severity Reaction Status Date / Time
latex Allergy Had Verified 05/02/24 00:28
reaction
during
dental
procedure
Home Medications
aspirin 81 mg tablet,delayed release 81 mg PO DAILY Blood clot prevention/tx 07/27/15
doxepin 10 mg capsule 10 mg PO HS Sleep 01/25/21
duloxetine 60 mg capsule,delayed release 60 mg PO DAILY Depression 01/25/21
multivitamin with folic acid 400 mcg tablet (Tab-A-Usha) 1 tab PO DAILY Supplement 01/25/21
pravastatin 40 mg tablet 40 mg PO HS High cholesterol 01/25/21
alprazolam 0.25 mg tablet 0.25 mg PO HS Sleep 12/18/23
levothyroxine 50 mcg tablet 50 mcg PO DAILY Thyroid 12/18/23
Review of Systems
-
History Source: Patient
Constitutional: Reports No Symptoms
EENT: Reports No Symptoms
Respiratory: Reports No Symptoms
Cardiac: Reports No Symptoms
Abdomen/GI: Reports Abdominal Pain
: Reports No Symptoms
Musculoskeletal: Reports No Symptoms
Skin: Reports No Symptoms
Neurological: Reports No Symptoms
Endocrine: Reports No Symptoms
Hematologic/Lymphatic: Reports No Symptoms
Psych: Reports No Symptoms
Physical Exam
Vital Signs
Vital Signs
Temp Pulse Resp BP Pulse Ox
96.5 F L 90 30 94/53 98
05/01/24 23:58 05/02/24 01:15 05/02/24 01:15 05/02/24 01:00 05/02/24 01:15
Physical Exam
General: Well Developed, Well Nourished, Comfortable and Conversant
HEENT: NormoCephalic, Anicteric, Moist mucous membranes, Atraumatic, PERRLA, [place] Conjunctivae and Hearing Impaired
Respiratory: Clear
Cardiac: S1/S2 and Regular Rhythm
Breast: Deferred by me
GI: Soft, Non Distended, Normal Bowel Sounds and Tender
Rectal: Deferred by Provider
Genito-urinary: Deferred by me
Musculoskeletal: No Clubbing, No Cyanosis and No Edema
Skin: Warm
Neuro: AO x 3, No Motor Deficits, Cranial Nerves Intact and No Sensory Deficits; No Slurred Speech or Facial Droop
Hematologic/Lymphatic: No Lymphadenopathy
Psych: Calm
Laboratory Results
-
05/02/24 00:19
05/02/24 00:18
Laboratory Results
Total Bilirubin Cancelled 05/02/24 00:18
AST Cancelled 05/02/24 00:18
ALT Cancelled 05/02/24 00:18
Alkaline Phosphatase Cancelled 05/02/24 00:18
Lipase 69 U/L (23-300) 05/02/24 00:18
Data Reviewed
-
Medical Tests (Nuc Med, Echo, EKG etc): Image Personally Visualized and interpreted
Lab Data: Labs Reviewed by me
Impression/Plan
-
IMPRESSION:
88-year-old with past medical history significant for anxiety, prior CVA with mild residual left-sided deficits, hyperlipidemia and hypothyroid, CKD stage III presents to the emergency department with a brief episode of slurred speech and altered
consciousness. Patient does not seem to be aware of these alterations. She is currently with normal speech and no focal neurological deficits. NIHSS equals 0. CT of the head was negative for any acute intracranial process. Labs were mostly
unremarkable and unchanged from prior.
PLAN:
1. Slurred speech - Transient slurred speech. Possibly due to toxicity from xanax versus TIA. Less likely TIA. Patient is currently at baseline mental status and no focal deficits.
- admit to telemetry observation
- aspirin 81 mg and continue statin
- neurochecks q 6 hours
- mri in am
- denies urinary symptoms
- anxiety, hold additional xanax
- doxepin for sleep
- PT and speech eval in am
2. Insomnia - chronic
- continue doxepin as above
3. Abdominal discomfort - denies n/v/d. Mild tenderness. ?gastritis but no evidence of peritonitis
- give maalox and famotidine x 1
- acetaminophen x 1
- add on lfts and lipase
DVT PPX - heparin sq
Code status - full code
[2024-05-02] MEDS: TYLENOL 650 MG PO (02:27)
[2024-05-02] MEDS: PEPCID 20 MG IV (02:27)
[2024-05-02] MEDS: LR 500 IV (02:28)
[2024-05-02] MEDS: MAALOX PLUS 1 TABLET PO (02:51)
[2024-05-02 03:19] VITALS: BP 118/69
[2024-05-02] MEDS: MILK OF MAGNESIA 30 ML PO (03:44)
[2024-05-02 04:00] VITALS: BP 105/64
[2024-05-02 05:01] VITALS: BP 113/91
[2024-05-02] MEDS: SYNTHROID 50 MCG PO (05:36)
[2024-05-02 06:03] LABS: Blood Urea Nitrogen 30 mg/dl (7-17); Calcium 9.4 mg/dl (8.4-10.2); Carbon Dioxide 19 mmol/L (22-30); Chloride 106 mmol/L (98-107); Estimated Creatinine Clearance 21 ml/min; Glucose 154 mg/dl (70-99); Potassium 3.8 mmol/L (3.5-5.1); Sodium 142 mmol/L (135-145); eGFR 31.02
[2024-05-02 07:01] LABS: Erythrocyte Sed Rate 14 mm/hour (0-20)
[2024-05-02 08:03] VITALS: BP 100/66
[2024-05-02] MEDS: HEPARIN 5000 UNITS SC (08:09)
[2024-05-02] MEDS: ASPIR LOW (ENTERIC COATED) 81 MG PO (08:09)
--- NOTE | 2024-05-02 10:09 | PTOTSP ---
Speech Therapy Evaluation:
Pt exhibits clinical signs of mild oral dysphagia and suspected functional pharyngeal phase. Pt with prolonged mastication and bolus formation of solids, likely related to partially edentulous state. No s/sx of aspiration across PO trials. WBC WNL.
Pt passed nursing 3oz swallow screen. Pt currently undergoing further workup with negative imaging thus far.
Recommend:
1. Initiate IDDSI Level 6 (soft and bite sized) and thin liquids
2. Medications as best tolerated
3. General aspiration precautions
4. Ongoing ST at acute care level pending hospitalization
[2024-05-02 12:00] VITALS: BP 149/65
[2024-05-02] MEDS: CYMBALTA DELAYED RELEASE 60 MG PO (12:03)
--- NOTE | 2024-05-02 13:50 | W.DCSUMMARY ---
Discharge Summary
Discharge Data
Date of Admission: 05/02/24
Date of Discharge: 05/02/24
-
Pending Results: No
Hospital Course
Gen-AAOx3, NAD
HEENT-NC, AT, anicteric, clear oral mm
Neck-supple
CV-reg, no M, +S1/S2
Lungs-clear B/L
Abd-soft, NT, ND
Musculoskeletal-no edema, no deformity
Skin-warm and dry
Neuro-no tremors, dysarthria consistent with baseline from previous stroke
Psych-calm, cooperative
Ms. Gibson is an 88-year-old female with a medical history of CVA and hypertension who presented with altered mentation and dysarthria. She had recently been residing at a different family member's house than usual and the change in routine may
have contributed to her confusion. She also took an extra dose of her home Xanax on the night prior to arrival after which she began slurring her speech and became unresponsive. In the ED, her labs and vital signs were generally unremarkable. She
was evaluated for possible stroke considering history however MRI showed no acute intracranial abnormalities. She will be continued on her home medications including aspirin and statin. Of note she had some mild abdominal discomfort but
experienced significant relief with bowel regimen and large bowel movement. She will be discharged to home with family. She should follow-up closely with her primary care physician.
Discharge Plan
-
Patient Disposition: Home (Routine Discharge)
Discharge Diagnosis/Procedures: Metabolic encephalopathy secondary to benzodiazepines
Diet: Other diet
Additional Diets: Soft and bite-size with thin liquids
Activity: With assistance and As tolerated
Activity Restrictions/Additional Instructions:
Ms. Gibson is an 88-year-old female with a medical history of CVA and hypertension who presented with altered mentation and dysarthria. She had recently been residing at a different family member's house than usual and the change in routine may
have contributed to her confusion. She also took an extra dose of her home Xanax on the night prior to arrival after which she began slurring her speech and became unresponsive. In the ED, her labs and vital signs were generally unremarkable. She
was evaluated for possible stroke considering history however MRI showed no acute intracranial abnormalities. She will be continued on her home medications including aspirin and statin. Of note she had some mild abdominal discomfort but
experienced significant relief with bowel regimen and large bowel movement. She will be discharged to home with family. She should follow-up closely with her primary care physician.
Referrals:
Mary Beth Ledbetter PA-C [Family Provider] -
Prescriptions:
Continued
aspirin 81 MG tablet,delayed release (DR/EC)
81 mg PO DAILY
pravastatin 40 MG tablet
40 mg PO HS
doxepin 10 MG capsule
10 mg PO HS
duloxetine 60 MG capsule,delayed release(DR/EC)
60 mg PO DAILY
Patient Comments:
01/25/2021: taken w/ 30mg = 90mg
multivitamin with folic acid [Tab-A-Uhsa] 1 TABLET tablet
1 tab PO DAILY
levothyroxine 50 mcg tablet
50 mcg PO DAILY
alprazolam 0.25 MG tablet
0.25 mg PO HS
Patient Comments:
12/18/2023: last filled 11/16/23, 90 tabs for [address] [facility]
Discharge Orders:
Discharge Patient (As Directed); Ordered 05/02/24
Ordered By: Gopi Daley
Discharge Date and Time
Print Language: LITHUANIAN
--- NOTE | 2024-05-02 14:59 | CM ---
CM reviewed medical records. Plan for discharge to home with family. NO need noted.
PLAN: Home no needs.
== END 2024-05-02 13:40 | disposition home or self-care (01) ==
LOC: ED 02:51
PROVIDERS: ADMITTING PHYSICIAN Internal Medicine; ATTENDING PHYSICIAN Internal Medicine; EMERGENCY PHYSICIAN Student in an Organized Health Care Education/Training Program; FAMILY PHYSICIAN Physician Assistant Medical
DX: G92.8 Other toxic encephalopathy (principal); T42.4X5A Adverse effect of benzodiazepines, initial encounter; Y92.009 Unspecified place in unspecified non-institutional (private) residence as the place of occurrence of the external cause; R47.81 Slurred speech; R47.1 Dysarthria and anarthria; I12.9 Hypertensive chronic kidney disease with stage 1 through stage 4 chronic kidney disease, or unspecified chronic kidney disease; E78.00 Pure hypercholesterolemia, unspecified; E03.9 Hypothyroidism, unspecified; E78.5 Hyperlipidemia, unspecified; F41.9 Anxiety disorder, unspecified; N18.30 Chronic kidney disease, stage 3 unspecified; G47.00 Insomnia, unspecified; R94.31 Abnormal electrocardiogram [ECG] [EKG]; M50.01 Cervical disc disorder with myelopathy, high cervical region; M50.021 Cervical disc disorder at C4-C5 level with myelopathy; M48.02 Spinal stenosis, cervical region; I69.30 Unspecified sequelae of cerebral infarction; G93.89 Other specified disorders of brain; I67.81 Acute cerebrovascular insufficiency; K59.00 Constipation, unspecified; R00.0 Tachycardia, unspecified; Z79.82 Long term (current) use of aspirin; Z79.890 Hormone replacement therapy; Z91.040 Latex allergy status
CPT/HCPCS: 70450; 70551; 80048; 83690; 83735; 85025; 85652; 92610; 93005; 99285; G0378